=== PATIENT | female | born 1935 | race Caucasian/White ===

== ENCOUNTER 2019-06-30 16:37 | Emergency (ER) | payer BC, OTHER ==
--- NOTE | 2019-06-30 16:43 | PDOC ---
Rapid Medical Evaluation Time Seen by Provider: 06/30/19 16:43 Medical Evaluation: 06/30/19 16:43 I performed a brief in-person evaluation of this patient. 84-year-old female with history of CHF, HTN, mitral valve disease, breast ca s/ p mastectomy and LND presenting with worsening right arm pain today. No weakness or numbness. Alert, oriented, no distress. Unable to elevate/abduct ROM 2/2 shoulder pain. 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 I have ordered the following: EKG R shoulder xray Patient will proceed to the main ED for further evaluation. Discharge Disposition - Diagnosis Shoulder pain - Referrals - Patient Instructions - Post Discharge Activity
[2019-06-30 16:47] VITALS: BMI 31.2
[2019-06-30] MEDS ORDERED: ACETAMINOPHEN 500 MG TABLET (FP) PO ONE (17:44)
--- NOTE | 2019-06-30 17:53 | PDOC ---
History of Present Illness - General Chief Complaint: Pain, Acute Stated Complaint: RT ARM PAIN Time Seen by Provider: 06/30/19 16:43 History Source: Patient Exam Limitations: No Limitations - History of Present Illness Initial Comments: 06/30/19 17:45 84 yo F PMH CHF, HTN, mitral valve disease, breast CA s/p R mastectomy and lymph node dissection, presenting with R shoulder pain. States that it began to hurt her after lunch, no obvious inciting factor, no apparent trauma. Unable to fully abduct or elevate 2/2 pain. Has no other complaints. Has not had recent steroid use or abx use. Patient is on coumadin because of "heart failure", unclear real reason. However, this is checked regularly. Past History - Past Medical History Allergies/Adverse Reactions: Allergies Allergy/AdvReac Type Severity Reaction Status Date / Time No Known Allergies Allergy Verified 06/30/19 16:47 Home Medications: Ambulatory Orders Atorvastatin Ca [Lipitor] 10 mg PO HS 06/30/19 Carvedilol Phosphate [Coreg Cr -] 80 mg PO DAILY 06/30/19 Furosemide [Lasix] 20 mg PO DAILY 06/30/19 Lansoprazole [Prevacid -] 30 mg PO DAILY 06/30/19 Spironolactone 25 mg PO DAILY 06/30/19 Warfarin Sodium [Coumadin] 5 mg PO HS 06/30/19 Cardiac Disorders: Yes (CHF) COPD: No Disorders: No Hypercholesterolemia: Yes Kidney Stones: No - Surgical History Gastric Stapling: No Neurologic Surgery: No - Immunization History Immunization Up to Date: No - Psycho Social/Smoking Cessation Hx Smoking History: Never smoked Have you smoked in the past 12 months: No Information on smoking cessation initiated: No Hx Alcohol Use: No Drug/Substance Use Hx: No Review of Systems - Review of Systems Able to Perform ROS?: Yes Is the patient limited Estonian proficient: No Constitutional: No: Chills, Fever HEENTM: No: Recent change in vision, Hearing Loss, Difficulty Swallowing Respiratory: No: Cough, Shortness of Breath Cardiac (ROS): No: Chest Pain, Irregular Heart Rate, Lightheadedness, Palpitations ABD/GI: No: Constipated, Diarrhea, Nausea, Vomiting : No: Burning, Dysuria, Discharge, Frequency, Flank Pain, Hematuria Musculoskeletal: No: Back Pain, Joint Pain, Muscle Pain Neurological: No: Headache, Numbness, Tingling *Physical Exam - Vital Signs Last Vital Signs Temp Pulse Resp BP Pulse Ox 98.0 F 77 16 105/62 98 06/30/19 16:44 06/30/19 16:44 06/30/19 16:44 06/30/19 16:44 06/30/19 16:44 - Physical Exam Comments: 06/30/19 17:53 Gen: well-developed, NAD Neuro: CNII-XII intact, FTN intact, EOMI, PERRLA, AAOX4, full key filer strength at hand HEENT: atraumatic, normocephalic Neck: trachea midline, supple CV: regular rate, regular rhythm Pulm: CTA b/l, no wheezing Abd: soft, non-distended, non-tender MSK: mild ttp to R shoulder, no apparent fracture, limited ROM 2/2 pain, unable to extend or abduct past around 70% Skin: warm, dry Extr: no edema, no deformities Medical Decision Making - Medical Decision Making 06/30/19 17:56 Concerning for rotator cuff injury. - R shoulder X ray r/o fracture - PO Tylenol for pain control - likely dc for ortho f/u, consider shoulder MRI 06/30/19 18:42 EKG 76 bpm, atrial fibrillation. 06/30/19 19:02 X ray shows osteoarthritic changes, but no acute fracture. Will give IM toradol and Lidoderm patch, attempt to range shoulder more with pain better controlled. Likely dc for outpatient ortho followup, shoulder MRI. Discharge - Discharge Information Problems reviewed: Yes Clinical Impression/Diagnosis: Shoulder pain Condition: Stable Disposition: HOME - Admission No - Follow up/Referral Referrals: Jhonatan Felipe MD [Primary Care Provider] - Jose Guadalupe Hou MD [Staff Physician] - Luis Miguel Oro MD [Staff Physician] - Davey Varela DO [Staff Physician] - - Patient Discharge Instructions Patient Printed Discharge Instructions: Shoulder Tendinopathy, DI for Rotator Cuff Injury, DI for Shoulder Pain Additional Instructions: You were seen with right shoulder pain. Your X ray did not show any acute fractures, however, there did appear to be osteoarthritis. Please take acetaminophen or naproxen as needed for pain. We listed several options for orthopedic surgery consult, please pick whomever you would feel comfortable with and can see you as soon as possible. Follow up with your primary care doctor. Return to the ED if you develop numbness or weakness. - Post Discharge Activity
[2019-06-30] MEDS ORDERED: ACETAMINOPHEN 325 MG TABLET (FP) ONE ×2 (17:59→18:01)
[2019-06-30] MEDS ORDERED: KETOROLAC TROMETHAMINE 30 MG/1 ML VIAL IM ONE (18:55)
[2019-06-30] MEDS ORDERED: LIDOCAINE 5% TOPICAL PATCH TP ONE (19:02)
[2019-06-30] MEDS ORDERED: LIDOCAINE 5% TOPICAL PATCH ONE (19:05)
[2019-06-30] MEDS ORDERED: KETOROLAC TROMETHAMINE 30 MG/1 ML VIAL ONE (19:05)
[2019-06-30 20:08] VITALS: BP 94/52; PULSE 88; TEMP 97.5
--- NOTE | 2019-06-30 20:16 | PDOC ---
Documentation entered by Valerie Kennedy SCRIBE, acting as scribe for Annette Barrera MD. Annette Barrera MD: This documentation has been prepared by the Marcia gomez Adrianna, SCRIBE, under my direction and personally reviewed by me in its entirety. I confirm that the documentation accurately reflects all work, treatment, procedures, and medical decision making performed by me. Attending Attestation - Resident Resident Name: Cierra Borja - ED Attending Attestation I have performed the following: I have examined & evaluated the patient, The case was reviewed & discussed with the resident, I agree w/resident's findings & plan, Exceptions are as noted - HPI HPI: The patient is an 84 year old female, with a significant PMH of CHF, HTN, mitral valve disease, breast ca (s/p right mastectomy and lymph node resection) , and LND, who presents to the ED for evaluation of right shoulder pain since earlier today. Patient cannot move her arm secondary to pain, but denies any trauma to the shoulder. Allergies: NKA, NKDA Surgical History: Social History: Denies EtOH, tobacco, or illicit drug use PCP: Dr. Naranjo - Physicial Exam PE: 06/30/19 19:27 84 yo female dev rt shoulder pain today without any trauma head ncat neck no midline cervical vertebral tenderness neck jvd,supple lungs cta wheezing abd soft extremities the right shoulder is tender to touch, no deformity ,sensation intact, no swelling . Hand and wrist are painfree - Medical Decision Making 06/30/19 20:16 no acute fracture or dislocation seen pt referred to ortho for further eval,MRI and treatment
[2019-06-30] MEDS ORDERED: LIDOCAINE PATCH REMOVAL MC SCH (22:00)
--- NOTE | 2019-07-01 12:12 | EKG ---
Test Reason : Blood Pressure : / mmHG Vent. Rate : 076 BPM Atrial Rate : 357 BPM P-R Int : 000 ms QRS Dur : 092 ms QT Int : 400 ms P-R-T Axes : 000 037 028 degrees QTc Int : 450 ms ATRIAL FIBRILLATION WITH A COMPETING JUNCTIONAL PACEMAKER LOW VOLTAGE QRS NONSPECIFIC T WAVE ABNORMALITY ABNORMAL ECG WHEN COMPARED WITH ECG OF 31-JAN-2010 10:20, NO SIGNIFICANT CHANGE WAS FOUND Confirmed by ANURADHA SHELDON, AUGUSTIN ([id number]) on 07/01/2019 12:12:45 PM Referred By: Confirmed By:AUGUSTIN LING MD
== END 2019-06-30 20:20 | disposition home or self-care (01) ==
LOC: JER 16:37
PROC: 3E0233Z Introduction of Anti-inflammatory into Muscle, Percutaneous Approach (ICD-10-PCS; principal; 2019-06-30)
DX: M19.011 Primary osteoarthritis, right shoulder (principal); I11.0 Hypertensive heart disease with heart failure; I50.9 Heart failure, unspecified; I48.91 Unspecified atrial fibrillation; Z79.01 Long term (current) use of anticoagulants; I05.9 Rheumatic mitral valve disease, unspecified; E78.00 Pure hypercholesterolemia, unspecified; Z85.3 Personal history of malignant neoplasm of breast; Z90.11 Acquired absence of right breast and nipple
CPT/HCPCS: 73030-TC-RT-FY; 93005; 93010; 96372; 99281-25

== ENCOUNTER 2021-05-22 17:49 | Observation (INO) | payer OTHER, BC ==
[2021-05-22] MEDS ORDERED: MECLIZINE HCL 25 MG TABLET (FP) PO ONE (19:51)
[2021-05-22] MEDS ORDERED: MECLIZINE HCL 25 MG TABLET (FP) ONE (19:57)
[2021-05-22 20:03] LABS: BASO % 0.4 % (0-2.0); EOS % 0.4 % (0-4.5); HEMOGLOBIN 10.6 GM/dL (10.7-15.3); LYMPH % 30.6 % (8-40); MCH 33.2 pg (25.7-33.7); MCHC 34.1 g/dl (32.0-36.0); MEAN CELL VOLUME 97.2 fl (80-96); MEAN PLT VOLUME 8.2 fl (7.5-11.1); MONO % 5.8 % (3.8-10.2); NEUT % 62.8 % (42.8-82.8); PLATELET COUNT 185 10^3/uL (134-434); RBC 3.18 M/mm3 (3.60-5.2); RDW 13.9 % (11.6-15.6); WHITE BLOOD COUNT 5.7 K/mm3 (4.0-10.0)
[2021-05-22 20:18] LABS: CHLORIDE 110 mmol/L (98-107); SODIUM 142 mmol/L (136-145)
[2021-05-22 20:20] LABS: ALBUMIN 3.7 g/dl (3.4-5.0); ANION GAP 6 MMOL/L (8-16); BLOOD UREA NITROGEN 31.4 mg/dL (7-18); CO2 26 mmol/L (21-32)
[2021-05-22 20:21] LABS: GLUCOSE,RANDOM 97 mg/dL (74-106)
[2021-05-22 20:22] LABS: CALCIUM 9.3 mg/dL (8.5-10.1)
[2021-05-22 20:24] LABS: SGOT/AST 10 U/L (15-37); SGPT/ALT 18 U/L (13-61)
[2021-05-22 20:25] LABS: BILIRUBIN,TOTAL 0.6 mg/dL (0.2-1); TOT PROT 6.3 g/dl (6.4-8.2)
[2021-05-22 20:26] LABS: ALK PHOS 29 U/L (45-117)
[2021-05-22 20:29] LABS: N-TERMINAL BNP 1206.6 pg/ml (5-450)
[2021-05-22 22:14] LABS: EPI CELLS 17 /uL (0-25.1); HYALINE CASTS 1 /uL (0-3.1); URINE APPEARANCE CLEAR; URINE BACTERIA 67 /uL (0-1359); URINE BILIRUBIN NEGATIVE (NEGATIVE); URINE COLOR YELLOW; URINE GLUCOSE (UA) NEGATIVE (NEGATIVE); URINE KETONE NEGATIVE (NEGATIVE); URINE LEUK ESTERASE 1+ (NEGATIVE); URINE NITRITE NEGATIVE (NEGATIVE); URINE PROTEIN NEGATIVE (NEGATIVE); URINE RBC 14 /uL (0-23.9); URINE WBC 22 /uL (0-25.8)
[2021-05-23] MEDS ORDERED: cefTRIAXone SODIUM 1 GM VIAL IVPB ONE (03:00)
[2021-05-23] MEDS ORDERED: CEFTRIAXONE 1 GM/50 ML BAG ONE (03:01)
[2021-05-23 07:00] LABS: BASO % 0.3 % (0-2.0); EOS % 0.5 % (0-4.5); HEMATOCRIT 30.5 % (32.4-45.2); HEMOGLOBIN 10.4 GM/dL (10.7-15.3); LYMPH % 36.8 % (8-40); MCH 33.2 pg (25.7-33.7); MCHC 34.1 g/dl (32.0-36.0); MEAN CELL VOLUME 97.1 fl (80-96); MEAN PLT VOLUME 7.8 fl (7.5-11.1); MONO % 7.3 % (3.8-10.2); NEUT % 55.1 % (42.8-82.8); PLATELET COUNT 181 10^3/uL (134-434); RBC 3.14 M/mm3 (3.60-5.2); RDW 14.2 % (11.6-15.6); WHITE BLOOD COUNT 4.4 K/mm3 (4.0-10.0)
[2021-05-23 07:19] LABS: ALBUMIN 3.5 g/dl (3.4-5.0); CALCIUM 9.2 mg/dL (8.5-10.1)
[2021-05-23 07:24] LABS: BILIRUBIN,TOTAL 0.7 mg/dL (0.2-1); CREATININE 0.9 mg/dL (0.55-1.3); PHOSPHOROUS 2.9 mg/dL (2.5-4.9); TOT PROT 6.1 g/dl (6.4-8.2)
[2021-05-23] MEDS ORDERED: PANTOPRAZOLE 40 MG TABLET ONE (11:02)
[2021-05-23] MEDS ORDERED: APIXABAN 5 MG TABLET ONE (11:03)
[2021-05-23] MEDS: CARVEDILOL PHOSPHATE CR 40 MG CAPSULE (FP) PO SCH (11:04)
[2021-05-23] MEDS: PANTOPRAZOLE 40 MG TABLET PO SCH (11:04)
[2021-05-23] MEDS: APIXABAN 5 MG TABLET PO SCH ×2 (11:04→21:15)
[2021-05-23] MEDS: SACUBITRIL/VALSARTAN 24 MG-26 MG TABLET PO SCH ×2 (11:04→21:48)
[2021-05-23] MEDS ORDERED: FUROSEMIDE 40 MG TABLET (FP) ONE (15:45)
[2021-05-23] MEDS ORDERED: SPIRONOLACTONE 25 MG TABLET ONE (15:46)
[2021-05-23] MEDS ORDERED: MECLIZINE HCL 25 MG TABLET (FP) ONE (15:51)
[2021-05-23] MEDS: SPIRONOLACTONE 25 MG TABLET PO SCH (15:52)
[2021-05-23] MEDS: MECLIZINE HCL 25 MG TABLET (FP) PO PRN (15:52)
[2021-05-23] MEDS: FUROSEMIDE 20 MG TABLET (FP) PO SCH (15:54)
[2021-05-23] MEDS: ATORVASTATIN CA 10 MG TABLET (FP) PO SCH (21:15)
[2021-05-24 08:37] LABS: BASO % 0.3 % (0-2.0); EOS % 1.5 % (0-4.5); HEMATOCRIT 30.1 % (32.4-45.2); HEMOGLOBIN 10.7 GM/dL (10.7-15.3); MCH 34.8 pg (25.7-33.7); MCHC 35.6 g/dl (32.0-36.0); MEAN CELL VOLUME 97.7 fl (80-96); MEAN PLT VOLUME 8.5 fl (7.5-11.1); MONO % 9.9 % (3.8-10.2); NEUT % 67.3 % (42.8-82.8); PLATELET COUNT 157 10^3/uL (134-434); RBC 3.08 M/mm3 (3.60-5.2); WHITE BLOOD COUNT 3.5 K/mm3 (4.0-10.0)
[2021-05-24] MEDS ORDERED: PT OWN MED DRAWER 7, Y5N ONE ×2 (09:05→18:50)
[2021-05-24 09:07] LABS: BLOOD UREA NITROGEN 27.6 mg/dL (7-18); MAGNESIUM 1.9 mg/dL (1.8-2.4)
[2021-05-24 09:10] LABS: CREATININE 0.9 mg/dL (0.55-1.3); PHOSPHOROUS 3.1 mg/dL (2.5-4.9)
[2021-05-24] MEDS: FUROSEMIDE 20 MG TABLET (FP) PO SCH (09:46)
[2021-05-24] MEDS: SPIRONOLACTONE 25 MG TABLET PO SCH (09:46)
[2021-05-24] MEDS: PANTOPRAZOLE 40 MG TABLET PO SCH (09:46)
[2021-05-24] MEDS: APIXABAN 5 MG TABLET PO SCH ×2 (09:46→21:11)
[2021-05-24] MEDS: CARVEDILOL PHOSPHATE CR 40 MG CAPSULE (FP) PO SCH (09:47)
[2021-05-24] MEDS: SACUBITRIL/VALSARTAN 24 MG-26 MG TABLET PO SCH ×2 (09:47→21:11)
[2021-05-24] MEDS: ATORVASTATIN CA 10 MG TABLET (FP) PO SCH (21:11)
[2021-05-24] MEDS: MECLIZINE HCL 25 MG TABLET (FP) PO PRN (21:13)
[2021-05-25 07:30] LABS: HEMATOCRIT 30.7 % (32.4-45.2); HEMOGLOBIN 10.7 GM/dL (10.7-15.3); MCH 33.3 pg (25.7-33.7); MCHC 34.7 g/dl (32.0-36.0); PLATELET COUNT 169 10^3/uL (134-434); WHITE BLOOD COUNT 4.3 K/mm3 (4.0-10.0)
[2021-05-25 07:48] LABS: CALCIUM 8.9 mg/dL (8.5-10.1)
[2021-05-25 07:49] LABS: BLOOD UREA NITROGEN 29.2 mg/dL (7-18)
[2021-05-25] MEDS ORDERED: PT OWN MED DRAWER 7, Y5N ONE ×2 (09:00→20:59)
[2021-05-25] MEDS: PANTOPRAZOLE 40 MG TABLET PO SCH (09:18)
[2021-05-25] MEDS: APIXABAN 5 MG TABLET PO SCH ×2 (09:18→21:26)
[2021-05-25] MEDS: FUROSEMIDE 20 MG TABLET (FP) PO SCH (09:18)
[2021-05-25] MEDS: SPIRONOLACTONE 25 MG TABLET PO SCH (09:18)
[2021-05-25] MEDS: CARVEDILOL PHOSPHATE CR 40 MG CAPSULE (FP) PO SCH (11:40)
[2021-05-25] MEDS: SACUBITRIL/VALSARTAN 24 MG-26 MG TABLET PO SCH ×2 (11:40→21:27)
[2021-05-25] MEDS: ATORVASTATIN CA 10 MG TABLET (FP) PO SCH (21:26)
[2021-05-25] MEDS: MECLIZINE HCL 25 MG TABLET (FP) PO PRN (21:34)
[2021-05-25 22:35] VITALS: BMI 31.6
[2021-05-26 07:29] LABS: HEMATOCRIT 31.1 % (32.4-45.2); HEMOGLOBIN 10.8 GM/dL (10.7-15.3); MCHC 34.8 g/dl (32.0-36.0); MEAN CELL VOLUME 97.8 fl (80-96); MEAN PLT VOLUME 8.4 fl (7.5-11.1); PLATELET COUNT 170 10^3/uL (134-434); RBC 3.18 M/mm3 (3.60-5.2); RDW 13.8 % (11.6-15.6); WHITE BLOOD COUNT 4.4 K/mm3 (4.0-10.0)
[2021-05-26 07:48] LABS: BLOOD UREA NITROGEN 34.5 mg/dL (7-18)
[2021-05-26 07:52] LABS: CREATININE 1.1 mg/dL (0.55-1.3)
[2021-05-26] MEDS: APIXABAN 5 MG TABLET PO SCH (09:42)
[2021-05-26] MEDS: PANTOPRAZOLE 40 MG TABLET PO SCH (09:42)
[2021-05-26] MEDS: SPIRONOLACTONE 25 MG TABLET PO SCH (09:42)
[2021-05-26] MEDS: FUROSEMIDE 20 MG TABLET (FP) PO SCH (09:42)
[2021-05-26] MEDS: SACUBITRIL/VALSARTAN 24 MG-26 MG TABLET PO SCH (09:43)
[2021-05-26] MEDS: CARVEDILOL PHOSPHATE CR 40 MG CAPSULE (FP) PO SCH (09:43)
[2021-05-26] MEDS ORDERED: MULTIVITAMINS THER W-MINERALS COMBO TABLET (FP) PO SCH ×2 (10:00)
[2021-05-26 14:53] VITALS: BP 93/37; PULSE 65; TEMP 98.1
== END 2021-05-26 19:05 | disposition home or self-care (01) ==
LOC: JER 17:49 → UNDOADMOB 22:24 → JERBED 22:24 → INTOOBSV 22:24 → J4W 05-23 18:53 → JERBED 05-23 18:53 → J4W 05-24 09:45 → JERBED 05-24 09:45
PROVIDERS: ADMIT Internal Medicine; ATTEND Internal Medicine
DX: I11.0 Hypertensive heart disease with heart failure (principal); I50.30 Unspecified diastolic (congestive) heart failure; R42 Dizziness and giddiness; I48.91 Unspecified atrial fibrillation; Z85.3 Personal history of malignant neoplasm of breast; I42.0 Dilated cardiomyopathy; E78.5 Hyperlipidemia, unspecified; E66.9 Obesity, unspecified; Z68.31 Body mass index [BMI] 31.0-31.9, adult; Z91.011 Allergy to milk products; Z79.01 Long term (current) use of anticoagulants
CPT/HCPCS: 36415; 70450-TC; 70551-TC; 71045-TC-FY; 71250-TC; 80048; 80053; 80061; 81003; 82550; 82728; 83036; 83540; 83550; 83735; 83880; 84100; 84443; 84466; 84484; 85025; 85027; 85045; 87086; 93005; 93010; 93306-TC; 93880-TC; 96374; 97116-GP; 97161-GP; 99291; C9803; G0378; U0003; U0005

== ENCOUNTER 2022-12-19 08:15 | Inpatient (IN) | payer OTHER, BC ==
[2022-12-19 09:37] LABS: INR 1.69 (0.83-1.09); PROTHROMBIN TIME (PATIENT) 19.5 SEC (9.7-13.0)
[2022-12-19 09:41] LABS: BASO % 0.4 % (0-2.0); EOS % 0.1 % (0-4.5); HEMATOCRIT 32.6 % (32.4-45.2); HEMOGLOBIN 11.1 GM/dL (10.7-15.3); LYMPH % 14.9 % (8-40); MCH 32.6 pg (25.7-33.7); MCHC 34.1 g/dl (32.0-36.0); MEAN CELL VOLUME 95.8 fl (80-96); MEAN PLT VOLUME 8.5 fl (7.5-11.1); MONO % 6.9 % (3.8-10.2); NEUT % 77.7 % (42.8-82.8); PLATELET COUNT 161 10^3/uL (134-434); RBC 3.41 M/mm3 (3.60-5.2); RDW 14.7 % (11.6-15.6); WHITE BLOOD COUNT 5.4 K/mm3 (4.0-10.0)
[2022-12-19 09:56] LABS: CALCIUM 9.9 mg/dL (8.5-10.1)
[2022-12-19 09:57] LABS: ALBUMIN 3.7 g/dl (3.4-5.0); BLOOD UREA NITROGEN 41.7 mg/dL (7-18)
[2022-12-19 10:00] LABS: CREATININE 1.2 mg/dL (0.55-1.3)
[2022-12-19 10:01] LABS: TOT PROT 6.7 g/dl (6.4-8.2)
[2022-12-19] MEDS ORDERED: MECLIZINE HCL 25 MG TABLET (FP) PO PRN (12:24)
[2022-12-19 15:56] VITALS: BMI 33.7
[2022-12-19 19:52] LABS: HEMOGLOBIN 9.8 GM/dL (10.7-15.3); MCH 32.4 pg (25.7-33.7); MCHC 33.7 g/dl (32.0-36.0); MEAN PLT VOLUME 8.4 fl (7.5-11.1); PLATELET COUNT 121 10^3/uL (134-434); RBC 3.02 M/mm3 (3.60-5.2); RDW 14.9 % (11.6-15.6); WHITE BLOOD COUNT 3.7 K/mm3 (4.0-10.0)
[2022-12-19 20:07] LABS: INR 1.61 (0.83-1.09); PROTHROMBIN TIME (PATIENT) 18.6 SEC (9.7-13.0)
[2022-12-19 20:10] LABS: ACTIVATED PTT 35.9 SECONDS (25.2-36.5)
[2022-12-19] MEDS: ATORVASTATIN CA 10 MG TABLET (FP) PO SCH (21:35)
[2022-12-19] MEDS: POLYETHYLENE GLYCOL (HEALTHYLAX) 3350 17 GM PACKET PO SCH (21:36)
[2022-12-19] MEDS: SACUBITRIL/VALSARTAN 24 MG-26 MG TABLET PO SCH (22:33)
[2022-12-19 23:04] LABS: EPI CELLS 31 /uL (0-25.1); HYALINE CASTS 15 /uL (0-3.1); PH,URINE 5.5 (5.0-8.0); URINE APPEARANCE TURBID; URINE BILIRUBIN 1+ (NEGATIVE); URINE COLOR RED; URINE GLUCOSE (UA) NEGATIVE (NEGATIVE); URINE KETONE NEGATIVE (NEGATIVE); URINE LEUK ESTERASE 2+ (NEGATIVE); URINE NITRITE POSITIVE (NEGATIVE); URINE PROTEIN 3+ (NEGATIVE); URINE RBC 39005 /uL (0-23.9); URINE UROBILINOGEN 0.2 mg/dL (0.2-1.0); URINE WBC 38 /uL (0-25.8)
[2022-12-20 08:51] LABS: BASO % 0.3 % (0-2.0); EOS % 0.2 % (0-4.5); HEMATOCRIT 29.5 % (32.4-45.2); HEMOGLOBIN 10.3 GM/dL (10.7-15.3); LYMPH % 27.5 % (8-40); MCH 33.4 pg (25.7-33.7); MCHC 34.9 g/dl (32.0-36.0); MEAN CELL VOLUME 95.8 fl (80-96); MEAN PLT VOLUME 8.7 fl (7.5-11.1); MONO % 17.2 % (3.8-10.2); NEUT % 54.8 % (42.8-82.8); PLATELET COUNT 118 10^3/uL (134-434); RBC 3.08 M/mm3 (3.60-5.2); RDW 14.5 % (11.6-15.6); WHITE BLOOD COUNT 2.1 K/mm3 (4.0-10.0)
[2022-12-20 08:52] LABS: INR 1.48 (0.83-1.09); PROTHROMBIN TIME (PATIENT) 17.1 SEC (9.7-13.0)
[2022-12-20 09:20] LABS: ALBUMIN 3.2 g/dl (3.4-5.0)
[2022-12-20 09:22] LABS: BILIRUBIN,TOTAL 0.8 mg/dL (0.2-1); TOT PROT 5.8 g/dl (6.4-8.2)
[2022-12-20 09:24] LABS: CALCIUM 8.5 mg/dL (8.5-10.1); PHOSPHOROUS 2.7 mg/dL (2.5-4.9)
[2022-12-20] MEDS ORDERED: PANTOPRAZOLE 40 MG TABLET PO SCH ×2 (10:00)
[2022-12-20] MEDS: FUROSEMIDE 20 MG TABLET (FP) PO SCH (10:55)
[2022-12-20] MEDS: POLYETHYLENE GLYCOL (HEALTHYLAX) 3350 17 GM PACKET PO SCH ×4 (10:55→22:23)
[2022-12-20] MEDS: SPIRONOLACTONE 25 MG TABLET PO SCH (10:55)
[2022-12-20] MEDS: CARVEDILOL PHOSPHATE CR 40 MG CAPSULE (FP) PO SCH (10:55)
[2022-12-20] MEDS: SACUBITRIL/VALSARTAN 24 MG-26 MG TABLET PO SCH ×2 (10:56→22:12)
[2022-12-20 13:45] LABS: RETICULOCYTES 1.11 % (0.5-1.5)
[2022-12-20 14:10] LABS: ANISOCYTOSIS 0; HELMET CELLS 0; HOWELL-JOLLY BODIES 0; MACROCYTOSIS 0; OVALOCYTE 0; ROULEAU 0; SICKELED CELLS 0; TARGET CELLS 0; TEAR DROP CELLS 0; TOXIC GRANULATION 0
[2022-12-20 16:44] LABS: BASO % 0.3 % (0-2.0); EOS % 0.3 % (0-4.5); LYMPH % 36.5 % (8-40); MCHC 34.5 g/dl (32.0-36.0); MEAN CELL VOLUME 95.4 fl (80-96); MEAN PLT VOLUME 8.9 fl (7.5-11.1); MONO % 17.3 % (3.8-10.2); NEUT % 45.6 % (42.8-82.8); PLATELET COUNT 119 10^3/uL (134-434); RBC 3.04 M/mm3 (3.60-5.2); RDW 14.6 % (11.6-15.6)
[2022-12-20] MEDS: ATORVASTATIN CA 10 MG TABLET (FP) PO SCH (22:12)
[2022-12-21 08:53] LABS: INR 1.29 (0.83-1.09); PROTHROMBIN TIME (PATIENT) 14.9 SEC (9.7-13.0)
[2022-12-21 09:12] LABS: BASO % 0.2 % (0-2.0); EOS % 0.6 % (0-4.5); HEMATOCRIT 28.3 % (32.4-45.2); HEMOGLOBIN 9.8 GM/dL (10.7-15.3); LYMPH % 35.4 % (8-40); MCH 32.9 pg (25.7-33.7); MCHC 34.5 g/dl (32.0-36.0); MEAN CELL VOLUME 95.4 fl (80-96); MEAN PLT VOLUME 8.5 fl (7.5-11.1); MONO % 15.2 % (3.8-10.2); NEUT % 48.6 % (42.8-82.8); PLATELET COUNT 115 10^3/uL (134-434); RBC 2.97 M/mm3 (3.60-5.2); RDW 14.7 % (11.6-15.6); WHITE BLOOD COUNT 2.7 K/mm3 (4.0-10.0)
[2022-12-21] MEDS: FUROSEMIDE 20 MG TABLET (FP) PO SCH (10:41)
[2022-12-21] MEDS: CARVEDILOL PHOSPHATE CR 40 MG CAPSULE (FP) PO SCH (10:41)
[2022-12-21] MEDS: SPIRONOLACTONE 25 MG TABLET PO SCH (10:41)
[2022-12-21] MEDS: PANTOPRAZOLE 40 MG TABLET PO SCH (10:41)
[2022-12-21 10:42] LABS: CALCIUM 8.9 mg/dL (8.5-10.1)
[2022-12-21] MEDS: SACUBITRIL/VALSARTAN 24 MG-26 MG TABLET PO SCH ×2 (10:42→21:17)
[2022-12-21 10:43] LABS: ALBUMIN 3.1 g/dl (3.4-5.0); BLOOD UREA NITROGEN 31.1 mg/dL (7-18); MAGNESIUM 2.2 mg/dL (1.8-2.4)
[2022-12-21] MEDS: POLYETHYLENE GLYCOL (HEALTHYLAX) 3350 17 GM PACKET PO SCH ×2 (10:45→21:17)
[2022-12-21 10:46] LABS: PHOSPHOROUS 2.8 mg/dL (2.5-4.9)
[2022-12-21 10:48] LABS: BILIRUBIN,TOTAL 0.6 mg/dL (0.2-1); TOT PROT 5.6 g/dl (6.4-8.2)
[2022-12-21] MEDS: FERROUS SO4 325 MG TABLET (FP) PO SCH (13:28)
[2022-12-21] MEDS: ASCORBIC ACID 500 MG TABLET (FP) PO SCH ×2 (13:28→21:17)
[2022-12-21 16:43] LABS: EPI CELLS >36 /uL (0-25.1); HYALINE CASTS 2 /uL (0-3.1); URINE APPEARANCE CLEAR; URINE BACTERIA 114 /uL (0-1359); URINE BILIRUBIN NEGATIVE (NEGATIVE); URINE COLOR YELLOW; URINE GLUCOSE (UA) NEGATIVE (NEGATIVE); URINE KETONE NEGATIVE (NEGATIVE); URINE LEUK ESTERASE 1+ (NEGATIVE); URINE NITRITE NEGATIVE (NEGATIVE); URINE PROTEIN NEGATIVE (NEGATIVE); URINE RBC 21 /uL (0-23.9); URINE WBC 18 /uL (0-25.8)
[2022-12-21] MEDS: ATORVASTATIN CA 10 MG TABLET (FP) PO SCH (21:16)
[2022-12-22 08:27] LABS: BASO % 0.3 % (0-2.0); EOS % 0.6 % (0-4.5); HEMOGLOBIN 9.9 GM/dL (10.7-15.3); LYMPH % 41.5 % (8-40); MCH 32.7 pg (25.7-33.7); MCHC 34.1 g/dl (32.0-36.0); MEAN CELL VOLUME 95.7 fl (80-96); MEAN PLT VOLUME 8.5 fl (7.5-11.1); MONO % 11.6 % (3.8-10.2); PLATELET COUNT 123 10^3/uL (134-434); RBC 3.03 M/mm3 (3.60-5.2); RDW 14.8 % (11.6-15.6); WHITE BLOOD COUNT 3.4 K/mm3 (4.0-10.0)
[2022-12-22] MEDS: POLYETHYLENE GLYCOL (HEALTHYLAX) 3350 17 GM PACKET PO SCH ×2 (09:38→22:03)
[2022-12-22] MEDS: FUROSEMIDE 20 MG TABLET (FP) PO SCH (09:39)
[2022-12-22] MEDS: FERROUS SO4 325 MG TABLET (FP) PO SCH (09:39)
[2022-12-22] MEDS: SPIRONOLACTONE 25 MG TABLET PO SCH (09:39)
[2022-12-22] MEDS: SACUBITRIL/VALSARTAN 24 MG-26 MG TABLET PO SCH ×2 (09:39→22:03)
[2022-12-22] MEDS: CARVEDILOL PHOSPHATE CR 40 MG CAPSULE (FP) PO SCH (09:39)
[2022-12-22] MEDS: PANTOPRAZOLE 40 MG TABLET PO SCH (09:39)
[2022-12-22] MEDS: ASCORBIC ACID 500 MG TABLET (FP) PO SCH ×2 (09:45→22:03)
[2022-12-22] MEDS: CEFTRIAXONE 1 GM in DEXTROSE 5%-WATER - 50 ML IVPB SCH (12:57)
[2022-12-22 15:29] LABS: INR 1.17 (0.83-1.09); PROTHROMBIN TIME (PATIENT) 13.5 SEC (9.7-13.0)
[2022-12-22] MEDS: ATORVASTATIN CA 10 MG TABLET (FP) PO SCH (22:03)
[2022-12-23 09:23] LABS: BASO % 0.3 % (0-2.0); EOS % 0.9 % (0-4.5); HEMATOCRIT 30.2 % (32.4-45.2); HEMOGLOBIN 10.3 GM/dL (10.7-15.3); LYMPH % 26.6 % (8-40); MCH 32.7 pg (25.7-33.7); MCHC 34.1 g/dl (32.0-36.0); MEAN CELL VOLUME 95.9 fl (80-96); MEAN PLT VOLUME 8.5 fl (7.5-11.1); MONO % 6.3 % (3.8-10.2); NEUT % 65.9 % (42.8-82.8); PLATELET COUNT 125 10^3/uL (134-434); RBC 3.15 M/mm3 (3.60-5.2); RDW 14.9 % (11.6-15.6); WHITE BLOOD COUNT 3.7 K/mm3 (4.0-10.0)
[2022-12-23] MEDS ORDERED: PEG 3350/NA SULF BICARB CL/KCL 4000 ML SOLN.RECON PO ONE (10:00)
[2022-12-23 10:59] LABS: ALBUMIN 3.2 g/dl (3.4-5.0); BILIRUBIN,TOTAL 0.9 mg/dL (0.2-1); BLOOD UREA NITROGEN 37.2 mg/dL (7-18); CALCIUM 8.9 mg/dL (8.5-10.1); CREATININE 1.3 mg/dL (0.55-1.3); TOT PROT 6.1 g/dl (6.4-8.2)
[2022-12-23] MEDS: SACUBITRIL/VALSARTAN 24 MG-26 MG TABLET PO SCH ×2 (11:00→22:56)
[2022-12-23] MEDS: POLYETHYLENE GLYCOL (HEALTHYLAX) 3350 17 GM PACKET PO SCH ×2 (11:00→22:56)
[2022-12-23] MEDS: SPIRONOLACTONE 25 MG TABLET PO SCH (11:00)
[2022-12-23] MEDS: ASCORBIC ACID 500 MG TABLET (FP) PO SCH ×2 (11:00→22:56)
[2022-12-23] MEDS: CARVEDILOL PHOSPHATE CR 40 MG CAPSULE (FP) PO SCH (11:00)
[2022-12-23] MEDS: CEFTRIAXONE 1 GM in DEXTROSE 5%-WATER - 50 ML IVPB SCH (11:00)
[2022-12-23] MEDS: PANTOPRAZOLE 40 MG TABLET PO SCH (11:00)
[2022-12-23] MEDS: FUROSEMIDE 20 MG TABLET (FP) PO SCH (11:00)
[2022-12-23] MEDS: FERROUS SO4 325 MG TABLET (FP) PO SCH (11:00)
[2022-12-23] MEDS ORDERED: BISACODYL 5 MG TABLET.DR (FP) PO ONE (20:00)
[2022-12-23] MEDS: ATORVASTATIN CA 10 MG TABLET (FP) PO SCH (22:56)
[2022-12-24 07:14] LABS: BASO % 0.3 % (0-2.0); EOS % 1.2 % (0-4.5); HEMATOCRIT 28.3 % (32.4-45.2); HEMOGLOBIN 9.9 GM/dL (10.7-15.3); LYMPH % 31.2 % (8-40); MCH 33.5 pg (25.7-33.7); MCHC 34.9 g/dl (32.0-36.0); MEAN CELL VOLUME 95.9 fl (80-96); MEAN PLT VOLUME 8.7 fl (7.5-11.1); MONO % 8.5 % (3.8-10.2); NEUT % 58.8 % (42.8-82.8); PLATELET COUNT 123 10^3/uL (134-434); RBC 2.95 M/mm3 (3.60-5.2)
[2022-12-24 07:22] LABS: INR 1.15 (0.83-1.09); PROTHROMBIN TIME (PATIENT) 13.3 SEC (9.7-13.0)
[2022-12-24 07:29] LABS: CALCIUM 8.5 mg/dL (8.5-10.1)
[2022-12-24 07:31] LABS: BLOOD UREA NITROGEN 26.6 mg/dL (7-18)
[2022-12-24 07:33] LABS: CREATININE 0.8 mg/dL (0.55-1.3)
[2022-12-24] MEDS: POLYETHYLENE GLYCOL (HEALTHYLAX) 3350 17 GM PACKET PO SCH ×2 (09:15→22:55)
[2022-12-24] MEDS: PANTOPRAZOLE 40 MG TABLET PO SCH (09:16)
[2022-12-24] MEDS: ASCORBIC ACID 500 MG TABLET (FP) PO SCH ×2 (09:16→22:55)
[2022-12-24] MEDS: SACUBITRIL/VALSARTAN 24 MG-26 MG TABLET PO SCH ×2 (09:16→22:55)
[2022-12-24] MEDS: CARVEDILOL PHOSPHATE CR 40 MG CAPSULE (FP) PO SCH (09:16)
[2022-12-24] MEDS: FERROUS SO4 325 MG TABLET (FP) PO SCH (09:16)
[2022-12-24] MEDS: CEFTRIAXONE 1 GM in DEXTROSE 5%-WATER - 50 ML IVPB SCH (09:33)
[2022-12-24] MEDS: ATORVASTATIN CA 10 MG TABLET (FP) PO SCH (22:55)
[2022-12-25 07:42] VITALS: RESP 18
[2022-12-25 08:36] LABS: BASO % 0.4 % (0-2.0); EOS % 1.4 % (0-4.5); HEMATOCRIT 28.4 % (32.4-45.2); HEMOGLOBIN 9.6 GM/dL (10.7-15.3); LYMPH % 28.2 % (8-40); MCH 32.3 pg (25.7-33.7); MCHC 33.7 g/dl (32.0-36.0); MEAN PLT VOLUME 8.4 fl (7.5-11.1); MONO % 10.6 % (3.8-10.2); NEUT % 59.4 % (42.8-82.8); PLATELET COUNT 120 10^3/uL (134-434); RBC 2.96 M/mm3 (3.60-5.2); RDW 14.4 % (11.6-15.6); WHITE BLOOD COUNT 2.6 K/mm3 (4.0-10.0)
[2022-12-25 09:06] LABS: CALCIUM 8.9 mg/dL (8.5-10.1)
[2022-12-25 09:07] LABS: BLOOD UREA NITROGEN 28.5 mg/dL (7-18); MAGNESIUM 2.2 mg/dL (1.8-2.4)
[2022-12-25 09:10] LABS: PHOSPHOROUS 2.7 mg/dL (2.5-4.9)
[2022-12-25 09:12] LABS: TOT PROT 5.7 g/dl (6.4-8.2)
[2022-12-25 09:17] LABS: BILIRUBIN,TOTAL 0.4 mg/dL (0.2-1)
[2022-12-25] MEDS: PANTOPRAZOLE 40 MG TABLET PO SCH (10:55)
[2022-12-25] MEDS: ASCORBIC ACID 500 MG TABLET (FP) PO SCH (10:55)
[2022-12-25] MEDS: FERROUS SO4 325 MG TABLET (FP) PO SCH (10:55)
[2022-12-25] MEDS: POLYETHYLENE GLYCOL (HEALTHYLAX) 3350 17 GM PACKET PO SCH (10:55)
[2022-12-25] MEDS: CEFTRIAXONE 1 GM in DEXTROSE 5%-WATER - 50 ML IVPB SCH (10:55)
[2022-12-25] MEDS: SACUBITRIL/VALSARTAN 24 MG-26 MG TABLET PO SCH (10:56)
[2022-12-25] MEDS: CARVEDILOL PHOSPHATE CR 40 MG CAPSULE (FP) PO SCH (10:56)
[2022-12-25 19:43] VITALS: BP 119/68; PULSE 68; TEMP 97.8
== END 2022-12-25 19:35 | disposition home or self-care (01) | DRG 377 ==
LOC: JER 08:15 → JERBED 12:14 → J7W 14:48 → OBSVTOIN 12-21 16:07 → J7W 12-24 17:40
PROVIDERS: ADMIT Internal Medicine; ATTEND Internal Medicine
PROC: 0DJD8ZZ Inspection of Lower Intestinal Tract, Via Natural or Artificial Opening Endoscopic (ICD-10-PCS; principal; 2022-12-24 12:00)
DX: K62.5 Hemorrhage of anus and rectum (principal); I50.23 Acute on chronic systolic (congestive) heart failure; J18.9 Pneumonia, unspecified organism; D61.818 Other pancytopenia; I42.0 Dilated cardiomyopathy; I48.21 Permanent atrial fibrillation; J90 Pleural effusion, not elsewhere classified; J98.11 Atelectasis; N17.9 Acute kidney failure, unspecified; I13.0 Hypertensive heart and chronic kidney disease with heart failure and stage 1 through stage 4 chronic kidney disease, or unspecified chronic kidney disease; I31.39 Other pericardial effusion (noninflammatory); E78.00 Pure hypercholesterolemia, unspecified; I25.10 Atherosclerotic heart disease of native coronary artery without angina pectoris; K57.90 Diverticulosis of intestine, part unspecified, without perforation or abscess without bleeding; K21.9 Gastro-esophageal reflux disease without esophagitis; D69.6 Thrombocytopenia, unspecified; D70.9 Neutropenia, unspecified; I73.9 Peripheral vascular disease, unspecified; I34.0 Nonrheumatic mitral (valve) insufficiency; K76.89 Other specified diseases of liver; R91.1 Solitary pulmonary nodule; D18.09 Hemangioma of other sites; N18.9 Chronic kidney disease, unspecified; K64.8 Other hemorrhoids; K59.00 Constipation, unspecified; D64.9 Anemia, unspecified; N28.1 Cyst of kidney, acquired; R16.0 Hepatomegaly, not elsewhere classified; Z85.3 Personal history of malignant neoplasm of breast
CPT/HCPCS: 36415; 71045-TC-FY; 74176-TC; 74183-TC; 80048; 80053; 81003; 82103; 82272; 82607; 82728; 82747; 82962; 83540; 83550; 83605; 83615; 83735; 84100; 85014; 85025; 85027; 85045; 85610; 85730; 86850; 86900; 86901; 87086; 93005; 93010; 93306-TC; 94010; 97116-GP; 97162-GP; 99285-25; A9579; C9803-CS; G0378; U0003; U0005

== ENCOUNTER 2023-06-30 18:58 | Inpatient (IN) | payer OTHER, BC ==
[2023-06-30 19:35] VITALS: BMI 33.7
[2023-06-30 19:38] LABS: BASO % 0.4 % (0-2.0); EOS % 0.3 % (0-4.5); LYMPH % 31.1 % (8-40); MCH 34.4 pg (25.7-33.7); MCHC 32.8 g/dl (32.0-36.0); MEAN CELL VOLUME 104.9 fl (80-96); MEAN PLT VOLUME 8.7 fl (7.5-11.1); MONO % 7.6 % (3.8-10.2); NEUT % 60.6 % (42.8-82.8); PLATELET COUNT 208 10^3/uL (134-434); RBC 1.58 M/mm3 (3.60-5.2); RDW 20.1 % (11.6-15.6); WHITE BLOOD COUNT 5.4 K/mm3 (4.0-10.0)
[2023-06-30 19:42] LABS: HEMOGLOBIN 5.4 GM/dL (10.7-15.3)
[2023-06-30 19:43] LABS: HEMATOCRIT 16.6 % (32.4-45.2)
[2023-06-30 19:46] LABS: INR 1.83 (0.83-1.09); PROTHROMBIN TIME (PATIENT) 21.1 SEC (9.7-13.0)
[2023-06-30 19:48] LABS: ACTIVATED PTT 31.5 SECONDS (25.2-36.5)
[2023-06-30 19:50] LABS: PH,URINE 5.5 (5.0-8.0); URINE APPEARANCE Clear; URINE BILIRUBIN Negative (NEGATIVE); URINE COLOR Yellow; URINE GLUCOSE (UA) Negative (NEGATIVE); URINE KETONE Negative (NEGATIVE); URINE LEUK ESTERASE 1+ (NEGATIVE); URINE NITRITE Negative (NEGATIVE); URINE PROTEIN Negative (NEGATIVE); URINE UROBILINOGEN 0.2 mg/dL (0.2-1.0)
[2023-06-30 19:51] LABS: POTASSIUM 5.7 mmol/L (3.5-5.1)
[2023-06-30 19:53] LABS: CALCIUM 8.5 mg/dL (8.5-10.1)
[2023-06-30 19:54] LABS: ALBUMIN 3.2 g/dl (3.4-5.0); BLOOD UREA NITROGEN 81.8 mg/dL (7-18)
[2023-06-30 19:57] LABS: CREATININE 1.7 mg/dL (0.55-1.3)
[2023-06-30 19:58] LABS: BILIRUBIN,TOTAL 0.4 mg/dL (0.2-1); TOT PROT 5.5 g/dl (6.4-8.2)
[2023-06-30 20:01] LABS: N-TERMINAL BNP 1260.3 pg/ml (5-450)
[2023-06-30 20:24] LABS: HYALINE CASTS 0.43 /uL (0-3.1); URINE BACTERIA 59.2 /uL (0-1359); URINE CRYSTALS Few /hpf; URINE RBC 9.2 /uL (0-23.9); URINE WBC 25.4 /uL (0-25.8)
[2023-06-30] MEDS ORDERED: PANTOPRAZOLE SODIUM 40 MG VIAL IVPUSH ONE (21:16)
[2023-06-30] MEDS ORDERED: PANTOPRAZOLE SODIUM 40 MG VIAL ONE (21:20)
[2023-06-30 22:28] LABS: RETICULOCYTES 11.43 % (0.5-1.5)
[2023-06-30 22:44] LABS: BILIRUBIN,DIRECT 0.1 mg/dL (0.0-0.2)
[2023-07-01] MEDS ORDERED: CEFTRIAXONE 1 GM/50 ML BAG ONE ×2 (02:37→09:01)
[2023-07-01] MEDS: CEFTRIAXONE 1 GM in DEXTROSE 5%-WATER - 50 ML IVPB SCH ×2 (02:47→10:06)
[2023-07-01 06:41] LABS: BASO % 0.2 % (0-2.0); EOS % 0.3 % (0-4.5); HEMATOCRIT 19.5 % (32.4-45.2); MCH 33.1 pg (25.7-33.7); MCHC 33.6 g/dl (32.0-36.0); MEAN PLT VOLUME 8.1 fl (7.5-11.1); NEUT % 70.5 % (42.8-82.8); PLATELET COUNT 150 10^3/uL (134-434); RBC 1.98 M/mm3 (3.60-5.2); RDW 20.7 % (11.6-15.6); WHITE BLOOD COUNT 4.4 K/mm3 (4.0-10.0)
[2023-07-01 06:54] LABS: MEAN CELL VOLUME 98.4 fl (80-96)
[2023-07-01 06:56] LABS: HEMOGLOBIN 6.6 GM/dL (10.7-15.3); POTASSIUM 5.1 mmol/L (3.5-5.1)
[2023-07-01 06:59] LABS: BLOOD UREA NITROGEN 69.3 mg/dL (7-18); MAGNESIUM 2.2 mg/dL (1.8-2.4)
[2023-07-01 07:01] LABS: ALBUMIN 2.8 g/dl (3.4-5.0)
[2023-07-01 07:02] LABS: CREATININE 1.4 mg/dL (0.55-1.3); PHOSPHOROUS 3.2 mg/dL (2.5-4.9)
[2023-07-01 07:03] LABS: TOT PROT 4.9 g/dl (6.4-8.2)
[2023-07-01 07:04] LABS: BILIRUBIN,TOTAL 0.5 mg/dL (0.2-1)
[2023-07-01 08:47] LABS: ANISOCYTOSIS 2+; MACROCYTOSIS 1+
[2023-07-01] MEDS ORDERED: CEFTRIAXONE 1,000 MG in DEXTROSE 5%-WATER - 50 ML IVPB SCH (10:00)
[2023-07-01] MEDS ORDERED: FUROSEMIDE 20 MG TABLET (FP) PO SCH (10:00)
[2023-07-01] MEDS ORDERED: PANTOPRAZOLE SODIUM 40 MG VIAL IVPUSH SCH ×2 (10:00)
[2023-07-01] MEDS: PANTOPRAZOLE SODIUM 80 MG in SODIUM CHLORIDE 100 ML IVPB SCH ×2 (13:32→23:00)
[2023-07-01 15:46] LABS: BASO % 0.1 % (0-2.0); EOS % 0.4 % (0-4.5); HEMATOCRIT 20.8 % (32.4-45.2); LYMPH % 12.6 % (8-40); MCH 32.9 pg (25.7-33.7); MCHC 33.8 g/dl (32.0-36.0); MEAN CELL VOLUME 97.2 fl (80-96); MEAN PLT VOLUME 7.8 fl (7.5-11.1); MONO % 8.6 % (3.8-10.2); NEUT % 78.3 % (42.8-82.8); PLATELET COUNT 165 10^3/uL (134-434); RBC 2.14 M/mm3 (3.60-5.2); RDW 21.4 % (11.6-15.6); WHITE BLOOD COUNT 4.5 K/mm3 (4.0-10.0)
[2023-07-01] MEDS: ATORVASTATIN CA 10 MG TABLET (FP) PO SCH (21:25)
[2023-07-02 07:28] LABS: BASO % 0.6 % (0-2.0); EOS % 1.1 % (0-4.5); HEMATOCRIT 19.3 % (32.4-45.2); MCH 33.1 pg (25.7-33.7); MEAN CELL VOLUME 100.2 fl (80-96); MEAN PLT VOLUME 8.1 fl (7.5-11.1); MONO % 10.9 % (3.8-10.2); NEUT % 68.4 % (42.8-82.8); PLATELET COUNT 152 10^3/uL (134-434); RBC 1.92 M/mm3 (3.60-5.2); RDW 21.7 % (11.6-15.6); WHITE BLOOD COUNT 2.8 K/mm3 (4.0-10.0)
[2023-07-02 07:36] LABS: HEMOGLOBIN 6.4 GM/dL (10.7-15.3)
[2023-07-02] MEDS: CEFTRIAXONE 1 GM in DEXTROSE 5%-WATER - 50 ML IVPB SCH (09:22)
[2023-07-02] MEDS: PANTOPRAZOLE SODIUM 80 MG in SODIUM CHLORIDE 100 ML IVPB SCH ×2 (09:22→18:22)
[2023-07-02] MEDS: ATORVASTATIN CA 10 MG TABLET (FP) PO SCH (21:29)
[2023-07-02 21:53] LABS: HEMATOCRIT 22.7 % (32.4-45.2); HEMOGLOBIN 7.8 GM/dL (10.7-15.3); MCH 32.4 pg (25.7-33.7); MCHC 34.3 g/dl (32.0-36.0); MEAN CELL VOLUME 94.3 fl (80-96); MEAN PLT VOLUME 7.8 fl (7.5-11.1); PLATELET COUNT 140 10^3/uL (134-434); RBC 2.41 M/mm3 (3.60-5.2); RDW 22.7 % (11.6-15.6); WHITE BLOOD COUNT 3.4 K/mm3 (4.0-10.0)
[2023-07-03] MEDS: PANTOPRAZOLE SODIUM 80 MG in SODIUM CHLORIDE 100 ML IVPB SCH (06:12)
[2023-07-03 07:16] LABS: HEMATOCRIT 22.8 % (32.4-45.2); HEMOGLOBIN 7.7 GM/dL (10.7-15.3); MCH 32.2 pg (25.7-33.7); MCHC 33.9 g/dl (32.0-36.0); MEAN CELL VOLUME 94.9 fl (80-96); MEAN PLT VOLUME 7.9 fl (7.5-11.1); PLATELET COUNT 147 10^3/uL (134-434); RDW 23.2 % (11.6-15.6); WHITE BLOOD COUNT 3.7 K/mm3 (4.0-10.0)
[2023-07-03 07:30] LABS: POTASSIUM 4.4 mmol/L (3.5-5.1)
[2023-07-03 07:34] LABS: CALCIUM 8.3 mg/dL (8.5-10.1)
[2023-07-03 07:35] LABS: ALBUMIN 2.7 g/dl (3.4-5.0); BLOOD UREA NITROGEN 48.3 mg/dL (7-18)
[2023-07-03 07:38] LABS: CREATININE 1.2 mg/dL (0.55-1.3)
[2023-07-03 07:40] LABS: BILIRUBIN,TOTAL 1.1 mg/dL (0.2-1); TOT PROT 4.9 g/dl (6.4-8.2)
[2023-07-03] MEDS ORDERED: FUROSEMIDE 40 MG TABLET (FP) PO SCH (10:00)
[2023-07-03] MEDS ORDERED: CARVEDILOL PHOSPHATE CR 40 MG CAPSULE (FP) PO SCH (10:00)
[2023-07-03] MEDS ORDERED: SIMETHICONE 40 MG/0.6 ML BOTTLE ONE (12:34)
[2023-07-03 18:12] LABS: HEMATOCRIT 24.5 % (32.4-45.2); HEMOGLOBIN 8.3 GM/dL (10.7-15.3); MCH 31.9 pg (25.7-33.7); MCHC 33.7 g/dl (32.0-36.0); MEAN CELL VOLUME 94.5 fl (80-96); PLATELET COUNT 152 10^3/uL (134-434); RDW 23.3 % (11.6-15.6); WHITE BLOOD COUNT 3.6 K/mm3 (4.0-10.0)
[2023-07-03] MEDS: ATORVASTATIN CA 10 MG TABLET (FP) PO SCH (21:41)
[2023-07-04 07:40] LABS: HEMATOCRIT 22.3 % (32.4-45.2); HEMOGLOBIN 7.4 GM/dL (10.7-15.3); MCH 31.9 pg (25.7-33.7); MCHC 33.2 g/dl (32.0-36.0); MEAN CELL VOLUME 96.2 fl (80-96); MEAN PLT VOLUME 8.1 fl (7.5-11.1); PLATELET COUNT 149 10^3/uL (134-434); RBC 2.31 M/mm3 (3.60-5.2); RDW 22.8 % (11.6-15.6); WHITE BLOOD COUNT 4.2 K/mm3 (4.0-10.0)
[2023-07-04 08:21] LABS: POTASSIUM 4.4 mmol/L (3.5-5.1)
[2023-07-04 08:29] LABS: BILIRUBIN,TOTAL 0.7 mg/dL (0.2-1)
[2023-07-04 09:07] LABS: CALCIUM 8.6 mg/dL (8.5-10.1)
[2023-07-04 09:08] LABS: ALBUMIN 2.7 g/dl (3.4-5.0); BLOOD UREA NITROGEN 48.6 mg/dL (7-18)
[2023-07-04 09:11] LABS: CREATININE 1.1 mg/dL (0.55-1.3)
[2023-07-04 09:12] LABS: TOT PROT 4.8 g/dl (6.4-8.2)
[2023-07-04] MEDS: PANTOPRAZOLE 40 MG TABLET PO SCH (10:52)
[2023-07-04] MEDS ORDERED: BISACODYL 5 MG TABLET.DR (FP) PO ONE (16:00)
[2023-07-04 16:46] LABS: BASO % 0.4 % (0-2.0); EOS % 0.6 % (0-4.5); HEMATOCRIT 23.1 % (32.4-45.2); HEMOGLOBIN 7.9 GM/dL (10.7-15.3); LYMPH % 30.6 % (8-40); MCH 32.5 pg (25.7-33.7); MCHC 34.3 g/dl (32.0-36.0); MEAN CELL VOLUME 94.8 fl (80-96); MEAN PLT VOLUME 8.1 fl (7.5-11.1); MONO % 9.3 % (3.8-10.2); NEUT % 59.1 % (42.8-82.8); PLATELET COUNT 160 10^3/uL (134-434); RBC 2.43 M/mm3 (3.60-5.2); RDW 22.4 % (11.6-15.6)
[2023-07-04] MEDS ORDERED: PEG 3350/NA SULF BICARB CL/KCL 4000 ML SOLN.RECON PO ONE (17:00)
[2023-07-04 17:51] LABS: ANISOCYTOSIS 3+; MACROCYTOSIS 1+
[2023-07-04] MEDS: ATORVASTATIN CA 10 MG TABLET (FP) PO SCH (22:20)
[2023-07-05 08:17] LABS: EPI CELLS >36 /uL (0-25.1); HYALINE CASTS 3 /uL (0-3.1); URINE APPEARANCE CLEAR; URINE BACTERIA 170 /uL (0-1359); URINE BILIRUBIN NEGATIVE (NEGATIVE); URINE COLOR YELLOW; URINE GLUCOSE (UA) NEGATIVE (NEGATIVE); URINE KETONE NEGATIVE (NEGATIVE); URINE LEUK ESTERASE TRACE (NEGATIVE); URINE NITRITE NEGATIVE (NEGATIVE); URINE PROTEIN NEGATIVE (NEGATIVE); URINE RBC 9 /uL (0-23.9); URINE UROBILINOGEN 0.2 mg/dL (0.2-1.0); URINE WBC 17 /uL (0-25.8)
[2023-07-05 08:17] LABS: BASO % 0.4 % (0-2.0); EOS % 1.1 % (0-4.5); HEMATOCRIT 22.2 % (32.4-45.2); HEMOGLOBIN 7.3 GM/dL (10.7-15.3); LYMPH % 25.7 % (8-40); MCH 31.6 pg (25.7-33.7); MCHC 32.7 g/dl (32.0-36.0); MEAN CELL VOLUME 96.7 fl (80-96); MEAN PLT VOLUME 8.1 fl (7.5-11.1); MONO % 9.5 % (3.8-10.2); NEUT % 63.3 % (42.8-82.8); PLATELET COUNT 147 10^3/uL (134-434); RDW 21.6 % (11.6-15.6); WHITE BLOOD COUNT 3.5 K/mm3 (4.0-10.0)
[2023-07-05 08:17] LABS: INR 1.17 (0.83-1.09); PROTHROMBIN TIME (PATIENT) 13.6 SEC (9.7-13.0)
[2023-07-05 08:37] LABS: POTASSIUM 3.6 mmol/L (3.5-5.1)
[2023-07-05 08:40] LABS: CALCIUM 8.2 mg/dL (8.5-10.1)
[2023-07-05 08:41] LABS: BLOOD UREA NITROGEN 40.4 mg/dL (7-18)
[2023-07-05] MEDS: PANTOPRAZOLE 40 MG TABLET PO SCH (10:09)
[2023-07-05 18:08] LABS: METHYLMALONIC ACID- 911 nmol/L (0-378)
[2023-07-05] MEDS ORDERED: SODIUM CHLORIDE 1,000 ML IV SCH (19:45)
[2023-07-05] MEDS: ATORVASTATIN CA 10 MG TABLET (FP) PO SCH (22:08)
[2023-07-06 08:28] LABS: POTASSIUM 3.9 mmol/L (3.5-5.1)
[2023-07-06 08:35] LABS: HEMATOCRIT 19.6 % (32.4-45.2); MCH 32.3 pg (25.7-33.7); MCHC 33.9 g/dl (32.0-36.0); MEAN CELL VOLUME 95.5 fl (80-96); MEAN PLT VOLUME 8.1 fl (7.5-11.1); PLATELET COUNT 130 10^3/uL (134-434); RBC 2.06 M/mm3 (3.60-5.2); RDW 21.5 % (11.6-15.6); WHITE BLOOD COUNT 2.9 K/mm3 (4.0-10.0)
[2023-07-06 08:36] LABS: BLOOD UREA NITROGEN 32.9 mg/dL (7-18); CREATININE 0.9 mg/dL (0.55-1.3)
[2023-07-06 08:38] LABS: ALBUMIN 2.5 g/dl (3.4-5.0); BILIRUBIN,TOTAL 0.5 mg/dL (0.2-1); TOT PROT 4.5 g/dl (6.4-8.2)
[2023-07-06 08:41] LABS: CALCIUM 8.1 mg/dL (8.5-10.1)
[2023-07-06 08:43] LABS: HEMOGLOBIN 6.6 GM/dL (10.7-15.3)
[2023-07-06] MEDS: MULTIVITAMINS (DAILY MVI) TABLET (FP) PO SCH (10:18)
[2023-07-06] MEDS: PANTOPRAZOLE 40 MG TABLET PO SCH (10:18)
[2023-07-06] MEDS: ATORVASTATIN CA 10 MG TABLET (FP) PO SCH (21:51)
[2023-07-07] MEDS: PANTOPRAZOLE 40 MG TABLET PO SCH (10:01)
[2023-07-07] MEDS: MULTIVITAMINS (DAILY MVI) TABLET (FP) PO SCH (10:01)
[2023-07-07 10:23] LABS: BASO % 0.4 % (0-2.0); EOS % 0.6 % (0-4.5); HEMATOCRIT 21.7 % (32.4-45.2); HEMOGLOBIN 7.3 GM/dL (10.7-15.3); LYMPH % 22.1 % (8-40); MCH 32.1 pg (25.7-33.7); MCHC 33.5 g/dl (32.0-36.0); MEAN CELL VOLUME 95.9 fl (80-96); NEUT % 69.9 % (42.8-82.8); PLATELET COUNT 123 10^3/uL (134-434); RBC 2.26 M/mm3 (3.60-5.2); RDW 21.9 % (11.6-15.6); WHITE BLOOD COUNT 4.3 K/mm3 (4.0-10.0)
[2023-07-07 10:39] LABS: CHLORIDE 111 mmol/L (98-107); POTASSIUM 3.8 mmol/L (3.5-5.1); SODIUM 141 mmol/L (136-145)
[2023-07-07 10:47] LABS: ANION GAP 3 MMOL/L (8-16); BLOOD UREA NITROGEN 32.5 mg/dL (7-18); CALCIUM 8.4 mg/dL (8.5-10.1); CO2 27 mmol/L (21-32); GLUCOSE,RANDOM 144 mg/dL (74-106)
[2023-07-07 10:48] LABS: ALBUMIN 2.5 g/dl (3.4-5.0); MAGNESIUM 1.7 mg/dL (1.8-2.4)
[2023-07-07 10:50] LABS: SGPT/ALT 10 U/L (13-61)
[2023-07-07 10:53] LABS: ALK PHOS 17 U/L (45-117); BILIRUBIN,TOTAL 0.6 mg/dL (0.2-1); TOT PROT 4.6 g/dl (6.4-8.2)
[2023-07-07 10:58] LABS: SGOT/AST < 3 U/L (15-37)
[2023-07-07] MEDS: ATORVASTATIN CA 10 MG TABLET (FP) PO SCH (21:18)
[2023-07-08 09:37] LABS: BASO % 0.3 % (0-2.0); EOS % 0.5 % (0-4.5); HEMATOCRIT 20.3 % (32.4-45.2); MCH 32.2 pg (25.7-33.7); MCHC 33.9 g/dl (32.0-36.0); MONO % 8.1 % (3.8-10.2); NEUT % 69.1 % (42.8-82.8); PLATELET COUNT 132 10^3/uL (134-434); RBC 2.13 M/mm3 (3.60-5.2); RDW 21.2 % (11.6-15.6); WHITE BLOOD COUNT 4.5 K/mm3 (4.0-10.0)
[2023-07-08 09:40] LABS: HEMOGLOBIN 6.9 GM/dL (10.7-15.3)
[2023-07-08 10:00] LABS: POTASSIUM 3.9 mmol/L (3.5-5.1)
[2023-07-08 10:04] LABS: ALBUMIN 2.6 g/dl (3.4-5.0); BLOOD UREA NITROGEN 31.6 mg/dL (7-18); CALCIUM 8.7 mg/dL (8.5-10.1); MAGNESIUM 1.8 mg/dL (1.8-2.4)
[2023-07-08 10:07] LABS: CREATININE 0.9 mg/dL (0.55-1.3)
[2023-07-08 10:09] LABS: TOT PROT 4.6 g/dl (6.4-8.2)
[2023-07-08 10:12] LABS: BILIRUBIN,TOTAL 0.6 mg/dL (0.2-1)
[2023-07-08 10:41] LABS: ANISOCYTOSIS 2+
[2023-07-08] MEDS: PANTOPRAZOLE 40 MG TABLET PO SCH (11:00)
[2023-07-08] MEDS: MULTIVITAMINS (DAILY MVI) TABLET (FP) PO SCH (11:00)
[2023-07-08 21:06] VITALS: BP 116/56; PULSE 64
[2023-07-08] MEDS: ATORVASTATIN CA 10 MG TABLET (FP) PO SCH (21:34)
[2023-07-08 22:14] VITALS: RESP 18; TEMP 99
== END 2023-07-08 22:20 | disposition short-term general hospital (02) | DRG 378 ==
LOC: JER 18:58 → JERBED 21:18 → J4W 07-01 11:40 → J8W 07-05 20:55
PROVIDERS: ADMIT Internal Medicine; ATTEND Nurse Practitioner Family
PROC: 30233N1 Transfusion of Nonautologous Red Blood Cells into Peripheral Vein, Percutaneous Approach (ICD-10-PCS; 2023-06-30)
PROC: 0DJ08ZZ Inspection of Upper Intestinal Tract, Via Natural or Artificial Opening Endoscopic (ICD-10-PCS; principal; 2023-07-03 13:00)
PROC: 0DJD8ZZ Inspection of Lower Intestinal Tract, Via Natural or Artificial Opening Endoscopic (ICD-10-PCS; 2023-07-05)
DX: K92.2 Gastrointestinal hemorrhage, unspecified (principal); D62 Acute posthemorrhagic anemia; I13.0 Hypertensive heart and chronic kidney disease with heart failure and stage 1 through stage 4 chronic kidney disease, or unspecified chronic kidney disease; N17.9 Acute kidney failure, unspecified; I48.21 Permanent atrial fibrillation; I42.0 Dilated cardiomyopathy; I50.22 Chronic systolic (congestive) heart failure; I25.10 Atherosclerotic heart disease of native coronary artery without angina pectoris; Z79.01 Long term (current) use of anticoagulants; N18.9 Chronic kidney disease, unspecified; K21.9 Gastro-esophageal reflux disease without esophagitis; E78.5 Hyperlipidemia, unspecified; K57.90 Diverticulosis of intestine, part unspecified, without perforation or abscess without bleeding; K29.70 Gastritis, unspecified, without bleeding; D53.9 Nutritional anemia, unspecified; E87.5 Hyperkalemia; I95.89 Other hypotension; I34.0 Nonrheumatic mitral (valve) insufficiency; N28.1 Cyst of kidney, acquired; R82.81 Pyuria; R91.1 Solitary pulmonary nodule; D70.9 Neutropenia, unspecified
CPT/HCPCS: 0241U-QW; 36415; 36430; 71045-TC-FY; 74174-TC; 76775-TC; 78278-TC; 80048; 80053; 81003; 82248; 82272; 82607; 82728; 82746; 83010; 83540; 83550; 83615; 83735; 83880; 83921; 84100; 84484; 85025; 85027; 85045; 85610; 85730; 86850; 86900; 86901; 86922; 87086; 87635; 93005; 93010; 99285-25; A9538; P9058

== ENCOUNTER 2023-09-15 12:51 | Inpatient (IN) | payer OTHER, BC ==
[2023-09-15 13:52] LABS: BASO % 0.7 % (0-2.0); EOS % 0.2 % (0-4.5); HEMATOCRIT 30.9 % (32.4-45.2); HEMOGLOBIN 9.9 GM/dL (10.7-15.3); LYMPH % 22.3 % (8-40); MCH 30.1 pg (25.7-33.7); MEAN CELL VOLUME 94.1 fl (80-96); MEAN PLT VOLUME 7.7 fl (7.5-11.1); NEUT % 67.8 % (42.8-82.8); PLATELET COUNT 169 10^3/uL (134-434); RBC 3.28 M/mm3 (3.60-5.2); RDW 15.7 % (11.6-15.6); WHITE BLOOD COUNT 4.4 K/mm3 (4.0-10.0)
[2023-09-15 14:02] LABS: INR 1.35 (0.83-1.09); PROTHROMBIN TIME (PATIENT) 15.6 SEC (9.7-13.0)
[2023-09-15 14:04] LABS: ACTIVATED PTT 34.8 SECONDS (25.2-36.5)
[2023-09-15 14:15] LABS: POTASSIUM 4.3 mmol/L (3.5-5.1)
[2023-09-15 14:16] LABS: CALCIUM 9.3 mg/dL (8.5-10.1)
[2023-09-15 14:17] LABS: ALBUMIN 3.1 g/dl (3.4-5.0)
[2023-09-15 14:18] LABS: BLOOD UREA NITROGEN 24.7 mg/dL (7-18)
[2023-09-15] MEDS ORDERED: DEXAMETHASONE SOD PHOSPHATE 10 MG/1 ML VIAL IVPUSH ONE (14:19)
[2023-09-15] MEDS ORDERED: VANCOMYCIN 1 GM PREMIX - 1 GM/200 ML BAG IVPB ONE (14:21)
[2023-09-15] MEDS ORDERED: REMDESIVIR 200 MG in SODIUM CHLORIDE 250 ML IVPB ONE (14:21)
[2023-09-15] MEDS ORDERED: PIPERACILLIN/TAZOB 4.5 GM 4.5 GM in DEXTROSE 5%-WATER 100 ML IVPB ONE (14:22)
[2023-09-15] MEDS ORDERED: AZITHROMYCIN IVPB 500 MG in DEXTROSE 5%-WATER - 250 ML IVPB ONE (14:23)
[2023-09-15 14:24] LABS: BILIRUBIN,TOTAL 0.4 mg/dL (0.2-1)
[2023-09-15] MEDS ORDERED: DEXAMETHASONE SOD PHOSPHATE 10 MG/1 ML VIAL ONE (15:00)
[2023-09-15] MEDS ORDERED: PIPERACILLIN/TAZOB 4.5 GM 4.5 GM/100 ML BAG IVPB ONE (15:00)
[2023-09-15 15:11] LABS: EPI CELLS 7 /uL (0-25.1); HYALINE CASTS 2 /uL (0-3.1); PH,URINE 5.5 (5.0-8.0); URINE APPEARANCE CLEAR; URINE BACTERIA 5 /uL (0-1359); URINE BILIRUBIN NEGATIVE (NEGATIVE); URINE COLOR YELLOW; URINE GLUCOSE (UA) NEGATIVE (NEGATIVE); URINE KETONE NEGATIVE (NEGATIVE); URINE LEUK ESTERASE NEGATIVE (NEGATIVE); URINE NITRITE NEGATIVE (NEGATIVE); URINE PROTEIN 1+ (NEGATIVE); URINE RBC 13 /uL (0-23.9); URINE UROBILINOGEN 0.2 mg/dL (0.2-1.0); URINE WBC 8 /uL (0-25.8)
[2023-09-15 15:19] LABS: ARTERIAL BLOOD GAS PO2 132.3 mmHg (80-100); ARTERIAL BLOOD GAS pH 7.252 (7.350-7.450)
[2023-09-15] MEDS ORDERED: FUROSEMIDE 40 MG/4 ML INJECTABLE VIAL IVPUSH ONE (16:13)
[2023-09-15] MEDS ORDERED: AZITHROMYCIN IVPB 500 MG/250 ML BAG IVPB ONE (16:22)
[2023-09-15] MEDS ORDERED: FUROSEMIDE 40 MG/4 ML INJECTABLE VIAL ONE (16:22)
[2023-09-15 18:01] LABS: ARTERIAL BLD GAS O2 SATURATION 93.8 % (95-98); ARTERIAL BLOOD GAS BASE EXCESS 10.6 mmol/L (-2-2); ARTERIAL BLOOD GAS PO2 81.7 mmHg (80-100); ARTERIAL BLOOD GAS pH 7.275 (7.350-7.450)
[2023-09-15] MEDS ORDERED: METOPROLOL TARTRATE 5 MG/5 ML VIAL IVPUSH PRN (18:24)
[2023-09-15] MEDS ORDERED: VANCOMYCIN 1 GRAM (PRE-DOCKED) 1,000 MG/250 ML BAG IVPB ONE (18:26)
[2023-09-15] MEDS: FUROSEMIDE 40 MG/4 ML INJECTABLE VIAL IVPUSH SCH (23:16)
[2023-09-15] MEDS: HEPARIN NA (PORCINE) 5,000 UNITS/ML 1ML VIAL SQ SCH (23:16)
[2023-09-15] MEDS: CHLORHEXIDINE GLUCONATE 4% CLEANSER FOR DECOLONIZATION TP SCH (23:17)
[2023-09-16] MEDS: PIPERACILLIN/TAZOB 4.5 GM 4.5 GM in DEXTROSE 5%-WATER 100 ML IVPB SCH ×4 (02:46→17:50)
[2023-09-16] MEDS: FUROSEMIDE 40 MG/4 ML INJECTABLE VIAL IVPUSH SCH ×3 (04:46→14:12)
[2023-09-16] MEDS: MUPIROCIN 2% TOPICAL OINTMENT FOR DECOLONIZATION NS SCH ×3 (04:48→21:33)
[2023-09-16 06:56] LABS: HEMATOCRIT 30.9 % (32.4-45.2); HEMOGLOBIN 10.2 GM/dL (10.7-15.3); MCH 30.6 pg (25.7-33.7); MCHC 33.1 g/dl (32.0-36.0); MEAN CELL VOLUME 92.6 fl (80-96); MEAN PLT VOLUME 8.2 fl (7.5-11.1); PLATELET COUNT 185 10^3/uL (134-434); RBC 3.34 M/mm3 (3.60-5.2); RDW 15.9 % (11.6-15.6); WHITE BLOOD COUNT 7.3 K/mm3 (4.0-10.0)
[2023-09-16 07:17] LABS: POTASSIUM 3.8 mmol/L (3.5-5.1)
[2023-09-16 07:21] LABS: CALCIUM 9.5 mg/dL (8.5-10.1)
[2023-09-16 07:22] LABS: BLOOD UREA NITROGEN 26.9 mg/dL (7-18); MAGNESIUM 1.9 mg/dL (1.8-2.4)
[2023-09-16 07:25] LABS: PHOSPHOROUS 2.7 mg/dL (2.5-4.9)
[2023-09-16 10:09] LABS: ARTERIAL BLD GAS O2 SATURATION 91.8 % (95-98); ARTERIAL BLOOD GAS BASE EXCESS 16.2 mmol/L (-2-2); ARTERIAL BLOOD GAS PO2 63.4 mmHg (80-100); ARTERIAL BLOOD GAS pH 7.424 (7.350-7.450)
[2023-09-16] MEDS: HEPARIN NA (PORCINE) 5,000 UNITS/ML 1ML VIAL SQ SCH ×2 (10:34→21:31)
[2023-09-16] MEDS: DEXAMETHASONE SOD PHOSPHATE 10 MG/1 ML VIAL IVPUSH SCH (10:34)
[2023-09-16] MEDS: REMDESIVIR 100 MG in SODIUM CHLORIDE 250 ML IVPB SCH (14:12)
[2023-09-16] MEDS: CHLORHEXIDINE GLUCONATE 4% CLEANSER FOR DECOLONIZATION TP SCH (21:31)
[2023-09-17] MEDS: FUROSEMIDE 40 MG/4 ML INJECTABLE VIAL IVPUSH SCH (00:29)
[2023-09-17] MEDS: PIPERACILLIN/TAZOB 4.5 GM 4.5 GM in DEXTROSE 5%-WATER 100 ML IVPB SCH ×2 (01:58→09:24)
[2023-09-17 06:36] LABS: BASO % 0.5 % (0-2.0); HEMATOCRIT 33.2 % (32.4-45.2); HEMOGLOBIN 10.9 GM/dL (10.7-15.3); MCH 30.1 pg (25.7-33.7); MCHC 32.8 g/dl (32.0-36.0); MEAN CELL VOLUME 91.7 fl (80-96); MEAN PLT VOLUME 8.3 fl (7.5-11.1); MONO % 8.9 % (3.8-10.2); NEUT % 72.6 % (42.8-82.8); PLATELET COUNT 193 10^3/uL (134-434); RBC 3.61 M/mm3 (3.60-5.2); RDW 16.5 % (11.6-15.6); WHITE BLOOD COUNT 6.1 K/mm3 (4.0-10.0)
[2023-09-17 07:05] LABS: POTASSIUM 3.7 mmol/L (3.5-5.1)
[2023-09-17 07:10] LABS: ALBUMIN 2.8 g/dl (3.4-5.0); BLOOD UREA NITROGEN 38.2 mg/dL (7-18); CALCIUM 9.3 mg/dL (8.5-10.1); MAGNESIUM 1.9 mg/dL (1.8-2.4)
[2023-09-17 07:13] LABS: CREATININE 1.3 mg/dL (0.55-1.3); PHOSPHOROUS 3.2 mg/dL (2.5-4.9)
[2023-09-17 07:14] LABS: BILIRUBIN,TOTAL 0.7 mg/dL (0.2-1); TOT PROT 5.7 g/dl (6.4-8.2)
[2023-09-17] MEDS: DEXAMETHASONE SOD PHOSPHATE 10 MG/1 ML VIAL IVPUSH SCH (09:24)
[2023-09-17] MEDS: HEPARIN NA (PORCINE) 5,000 UNITS/ML 1ML VIAL SQ SCH ×2 (09:25→21:00)
[2023-09-17] MEDS: MUPIROCIN 2% TOPICAL OINTMENT FOR DECOLONIZATION NS SCH ×2 (09:25→21:01)
[2023-09-17] MEDS ORDERED: PANTOPRAZOLE SODIUM 40 MG VIAL IVPUSH SCH (10:00)
[2023-09-17] MEDS ORDERED: METOPROLOL TARTRATE 5 MG/5 ML VIAL IVPUSH PRN (10:35)
[2023-09-17 12:28] LABS: ERYTHROCYTE SEDIMENTATION RATE 7 mm/hr (0-30)
[2023-09-17] MEDS: REMDESIVIR 100 MG in SODIUM CHLORIDE 250 ML IVPB SCH (16:11)
[2023-09-17] MEDS: PIPERACILLIN/TAZOB 3.375 GM 3.375 GM in DEXTROSE 5%-WATER - 50 ML IVPB SCH (17:18)
[2023-09-17] MEDS: CHLORHEXIDINE GLUCONATE 4% CLEANSER FOR DECOLONIZATION TP SCH (21:01)
[2023-09-18] MEDS: PIPERACILLIN/TAZOB 3.375 GM 3.375 GM in DEXTROSE 5%-WATER - 50 ML IVPB SCH ×3 (02:32→17:09)
[2023-09-18 06:28] LABS: BASO % 0.2 % (0-2.0); HEMATOCRIT 34.8 % (32.4-45.2); HEMOGLOBIN 11.5 GM/dL (10.7-15.3); MCH 30.4 pg (25.7-33.7); MEAN CELL VOLUME 92.2 fl (80-96); MEAN PLT VOLUME 8.2 fl (7.5-11.1); MONO % 11.9 % (3.8-10.2); NEUT % 66.9 % (42.8-82.8); PLATELET COUNT 187 10^3/uL (134-434); RBC 3.78 M/mm3 (3.60-5.2); RDW 16.5 % (11.6-15.6); WHITE BLOOD COUNT 6.3 K/mm3 (4.0-10.0)
[2023-09-18 06:43] LABS: CHLORIDE 92 mmol/L (98-107); POTASSIUM 3.5 mmol/L (3.5-5.1); SODIUM 141 mmol/L (136-145)
[2023-09-18 06:48] LABS: ALBUMIN 2.7 g/dl (3.4-5.0); BLOOD UREA NITROGEN 46.1 mg/dL (7-18); CALCIUM 9.4 mg/dL (8.5-10.1); GLUCOSE,RANDOM 115 mg/dL (74-106); MAGNESIUM 1.7 mg/dL (1.8-2.4)
[2023-09-18 06:51] LABS: CREATININE 1.4 mg/dL (0.55-1.3); PHOSPHOROUS 3.9 mg/dL (2.5-4.9); SGOT/AST 6 U/L (15-37); SGPT/ALT 12 U/L (13-61)
[2023-09-18 06:53] LABS: BILIRUBIN,TOTAL 0.4 mg/dL (0.2-1); TOT PROT 5.5 g/dl (6.4-8.2)
[2023-09-18 06:54] LABS: ALK PHOS 32 U/L (45-117)
[2023-09-18 07:21] LABS: ANION GAP 3 mmol/L (4-13); CO2 > 45 mmol/L (21-32)
[2023-09-18] MEDS ORDERED: MAGNESIUM SULF 50% (8.12 MEQ/2 ML-1 GM VIAL) IVPB ONE (08:00)
[2023-09-18 09:08] LABS: ERYTHROCYTE SEDIMENTATION RATE 7 mm/hr (0-30)
[2023-09-18] MEDS: HEPARIN NA (PORCINE) 5,000 UNITS/ML 1ML VIAL SQ SCH (09:38)
[2023-09-18] MEDS: DEXAMETHASONE SOD PHOSPHATE 10 MG/1 ML VIAL IVPUSH SCH (09:38)
[2023-09-18] MEDS: MUPIROCIN 2% TOPICAL OINTMENT FOR DECOLONIZATION NS SCH ×2 (09:39→21:15)
[2023-09-18] MEDS ORDERED: FUROSEMIDE 40 MG/4 ML INJECTABLE VIAL IVPUSH SCH (10:00)
[2023-09-18] MEDS: REMDESIVIR 100 MG in SODIUM CHLORIDE 250 ML IVPB SCH (14:28)
[2023-09-18] MEDS: ATORVASTATIN CA 10 MG TABLET (FP) PO SCH (21:15)
[2023-09-18] MEDS: CHLORHEXIDINE GLUCONATE 4% CLEANSER FOR DECOLONIZATION TP SCH (21:15)
[2023-09-18] MEDS: SPIRONOLACTONE 25 MG TABLET PO SCH (21:15)
[2023-09-18] MEDS: APIXABAN 5 MG TABLET PO SCH (21:15)
[2023-09-19] MEDS: PIPERACILLIN/TAZOB 3.375 GM 3.375 GM in DEXTROSE 5%-WATER - 50 ML IVPB SCH ×3 (01:09→18:45)
[2023-09-19 06:41] LABS: HEMATOCRIT 32.6 % (32.4-45.2); HEMOGLOBIN 10.8 GM/dL (10.7-15.3); MCH 30.4 pg (25.7-33.7); MCHC 33.2 g/dl (32.0-36.0); MEAN CELL VOLUME 91.7 fl (80-96); MEAN PLT VOLUME 8.4 fl (7.5-11.1); PLATELET COUNT 179 10^3/uL (134-434); RBC 3.56 M/mm3 (3.60-5.2); RDW 16.2 % (11.6-15.6)
[2023-09-19 06:49] LABS: CHLORIDE 94 mmol/L (98-107); POTASSIUM 3.5 mmol/L (3.5-5.1); SODIUM 141 mmol/L (136-145)
[2023-09-19 06:52] LABS: ALBUMIN 2.6 g/dl (3.4-5.0); ANION GAP 2 mmol/L (4-13); BLOOD UREA NITROGEN 45.7 mg/dL (7-18); CALCIUM 9.2 mg/dL (8.5-10.1); CO2 45 mmol/L (21-32); GLUCOSE,RANDOM 112 mg/dL (74-106); MAGNESIUM 2.5 mg/dL (1.8-2.4)
[2023-09-19 06:54] LABS: CREATININE 1.2 mg/dL (0.55-1.3); PHOSPHOROUS 3.2 mg/dL (2.5-4.9); SGOT/AST < 3 U/L (15-37); SGPT/ALT 10 U/L (13-61)
[2023-09-19 06:57] LABS: BILIRUBIN,TOTAL 0.4 mg/dL (0.2-1); TOT PROT 5.3 g/dl (6.4-8.2)
[2023-09-19 06:58] LABS: ALK PHOS 27 U/L (45-117)
[2023-09-19] MEDS: SPIRONOLACTONE 25 MG TABLET PO SCH ×2 (10:40→21:00)
[2023-09-19] MEDS: MUPIROCIN 2% TOPICAL OINTMENT FOR DECOLONIZATION NS SCH ×2 (10:40→21:01)
[2023-09-19] MEDS: APIXABAN 5 MG TABLET PO SCH ×2 (10:40→21:01)
[2023-09-19] MEDS: DEXAMETHASONE SOD PHOSPHATE 10 MG/1 ML VIAL IVPUSH SCH (10:41)
[2023-09-19] MEDS: CARVEDILOL PHOSPHATE CR 40 MG CAPSULE (FP) PO SCH (10:41)
[2023-09-19] MEDS: REMDESIVIR 100 MG in SODIUM CHLORIDE 250 ML IVPB SCH (15:00)
[2023-09-19] MEDS: ATORVASTATIN CA 10 MG TABLET (FP) PO SCH (21:00)
[2023-09-19] MEDS: CHLORHEXIDINE GLUCONATE 4% CLEANSER FOR DECOLONIZATION TP SCH (21:01)
[2023-09-20] MEDS: PIPERACILLIN/TAZOB 3.375 GM 3.375 GM in DEXTROSE 5%-WATER - 50 ML IVPB SCH ×3 (02:14→17:02)
[2023-09-20 06:57] LABS: BASO % 0.2 % (0-2.0); EOS % 0.2 % (0-4.5); HEMATOCRIT 32.4 % (32.4-45.2); HEMOGLOBIN 10.5 GM/dL (10.7-15.3); LYMPH % 18.8 % (8-40); MCH 29.9 pg (25.7-33.7); MCHC 32.5 g/dl (32.0-36.0); MEAN CELL VOLUME 92.1 fl (80-96); MEAN PLT VOLUME 8.3 fl (7.5-11.1); MONO % 9.6 % (3.8-10.2); NEUT % 71.2 % (42.8-82.8); PLATELET COUNT 155 10^3/uL (134-434); RBC 3.52 M/mm3 (3.60-5.2); RDW 16.2 % (11.6-15.6); WHITE BLOOD COUNT 4.5 K/mm3 (4.0-10.0)
[2023-09-20 07:11] LABS: POTASSIUM 3.6 mmol/L (3.5-5.1)
[2023-09-20 07:21] LABS: ALBUMIN 2.6 g/dl (3.4-5.0); BLOOD UREA NITROGEN 47.1 mg/dL (7-18); CALCIUM 9.4 mg/dL (8.5-10.1)
[2023-09-20 07:23] LABS: MAGNESIUM 2.3 mg/dL (1.8-2.4); PHOSPHOROUS 3.4 mg/dL (2.5-4.9)
[2023-09-20 07:26] LABS: BILIRUBIN,TOTAL 0.4 mg/dL (0.2-1); TOT PROT 5.2 g/dl (6.4-8.2)
[2023-09-20] MEDS: CARVEDILOL PHOSPHATE CR 40 MG CAPSULE (FP) PO SCH (09:41)
[2023-09-20] MEDS: APIXABAN 5 MG TABLET PO SCH ×2 (09:41→21:54)
[2023-09-20] MEDS: DEXAMETHASONE SOD PHOSPHATE 10 MG/1 ML VIAL IVPUSH SCH (09:42)
[2023-09-20] MEDS: SPIRONOLACTONE 25 MG TABLET PO SCH ×2 (09:42→21:54)
[2023-09-20] MEDS: MUPIROCIN 2% TOPICAL OINTMENT FOR DECOLONIZATION NS SCH (09:42)
[2023-09-20] MEDS ORDERED: PANTOPRAZOLE SODIUM 40 MG VIAL IVPUSH SCH (10:00)
[2023-09-20] MEDS: ATORVASTATIN CA 10 MG TABLET (FP) PO SCH (21:54)
[2023-09-20] MEDS: CHLORHEXIDINE GLUCONATE 4% CLEANSER FOR DECOLONIZATION TP SCH (21:55)
[2023-09-20] MEDS ORDERED: POLYETHYLENE GLYCOL (HEALTHYLAX) 3350 17 GM PACKET PO ONE (22:15)
[2023-09-21] MEDS: PIPERACILLIN/TAZOB 3.375 GM 3.375 GM in DEXTROSE 5%-WATER - 50 ML IVPB SCH ×3 (02:15→17:35)
[2023-09-21] MEDS: DEXAMETHASONE SOD PHOSPHATE 10 MG/1 ML VIAL IVPUSH SCH (10:50)
[2023-09-21] MEDS: APIXABAN 5 MG TABLET PO SCH ×2 (10:51→21:32)
[2023-09-21] MEDS: SPIRONOLACTONE 25 MG TABLET PO SCH ×2 (10:51→21:32)
[2023-09-21] MEDS: CARVEDILOL PHOSPHATE CR 40 MG CAPSULE (FP) PO SCH (11:01)
[2023-09-21] MEDS: ATORVASTATIN CA 10 MG TABLET (FP) PO SCH (21:32)
[2023-09-21] MEDS: CHLORHEXIDINE GLUCONATE 4% CLEANSER FOR DECOLONIZATION TP SCH (21:33)
[2023-09-22] MEDS: PIPERACILLIN/TAZOB 3.375 GM 3.375 GM in DEXTROSE 5%-WATER - 50 ML IVPB SCH ×3 (01:25→19:00)
[2023-09-22] MEDS: APIXABAN 5 MG TABLET PO SCH ×2 (10:17→21:28)
[2023-09-22] MEDS: SPIRONOLACTONE 25 MG TABLET PO SCH ×2 (10:17→21:28)
[2023-09-22] MEDS: DEXAMETHASONE SOD PHOSPHATE 10 MG/1 ML VIAL IVPUSH SCH (10:18)
[2023-09-22] MEDS: CARVEDILOL PHOSPHATE CR 40 MG CAPSULE (FP) PO SCH (11:55)
[2023-09-22 13:57] VITALS: BMI 31.3
[2023-09-22] MEDS: CHLORHEXIDINE GLUCONATE 4% CLEANSER FOR DECOLONIZATION TP SCH (21:28)
[2023-09-22] MEDS: ATORVASTATIN CA 10 MG TABLET (FP) PO SCH (21:28)
[2023-09-23] MEDS: PIPERACILLIN/TAZOB 3.375 GM 3.375 GM in DEXTROSE 5%-WATER - 50 ML IVPB SCH ×3 (02:20→17:00)
[2023-09-23] MEDS: SPIRONOLACTONE 25 MG TABLET PO SCH ×2 (09:06→21:47)
[2023-09-23] MEDS: DEXAMETHASONE SOD PHOSPHATE 10 MG/1 ML VIAL IVPUSH SCH (09:06)
[2023-09-23] MEDS: APIXABAN 5 MG TABLET PO SCH ×2 (09:06→21:47)
[2023-09-23] MEDS: CARVEDILOL PHOSPHATE CR 40 MG CAPSULE (FP) PO SCH (10:36)
[2023-09-23] MEDS: ATORVASTATIN CA 10 MG TABLET (FP) PO SCH (21:47)
[2023-09-23] MEDS: CHLORHEXIDINE GLUCONATE 4% CLEANSER FOR DECOLONIZATION TP SCH (21:48)
[2023-09-24] MEDS: PIPERACILLIN/TAZOB 3.375 GM 3.375 GM in DEXTROSE 5%-WATER - 50 ML IVPB SCH ×2 (02:10→10:00)
[2023-09-24] MEDS: APIXABAN 5 MG TABLET PO SCH ×2 (09:59→21:22)
[2023-09-24] MEDS: DEXAMETHASONE SOD PHOSPHATE 10 MG/1 ML VIAL IVPUSH SCH (09:59)
[2023-09-24] MEDS: CARVEDILOL PHOSPHATE CR 40 MG CAPSULE (FP) PO SCH (10:00)
[2023-09-24] MEDS: SPIRONOLACTONE 25 MG TABLET PO SCH ×2 (10:00→21:22)
[2023-09-24] MEDS: ATORVASTATIN CA 10 MG TABLET (FP) PO SCH (21:22)
[2023-09-24] MEDS: CHLORHEXIDINE GLUCONATE 4% CLEANSER FOR DECOLONIZATION TP SCH (21:22)
[2023-09-25] MEDS: SPIRONOLACTONE 25 MG TABLET PO SCH ×2 (09:02→21:51)
[2023-09-25] MEDS: CARVEDILOL PHOSPHATE CR 40 MG CAPSULE (FP) PO SCH (09:03)
[2023-09-25] MEDS: APIXABAN 5 MG TABLET PO SCH ×2 (09:03→21:51)
[2023-09-25] MEDS: DEXAMETHASONE SOD PHOSPHATE 10 MG/1 ML VIAL IVPUSH SCH (09:03)
[2023-09-25] MEDS ORDERED: CALCIUM CARBONATE 650 MG TABLET PO ONE (13:22)
[2023-09-25] MEDS: FUROSEMIDE 20 MG TABLET (FP) PO SCH (15:37)
[2023-09-25] MEDS: MAG HYDROX/AL HYDROX/SIMETH 30 ML UNIT-DOSE CUP PO PRN (21:51)
[2023-09-25] MEDS: ATORVASTATIN CA 10 MG TABLET (FP) PO SCH (21:51)
[2023-09-25] MEDS: CHLORHEXIDINE GLUCONATE 4% CLEANSER FOR DECOLONIZATION TP SCH (21:52)
[2023-09-25] MEDS ORDERED: SACUBITRIL/VALSARTAN 24 MG-26 MG TABLET PO SCH (22:00)
[2023-09-26] MEDS: ACETAMINOPHEN 500 MG TABLET (FP) PO PRN ×2 (03:35→08:52)
[2023-09-26 04:27] VITALS: TEMP 97.8
[2023-09-26 07:25] LABS: HEMATOCRIT 27.8 % (32.4-45.2); HEMOGLOBIN 8.8 GM/dL (10.7-15.3); MCH 29.4 pg (25.7-33.7); MCHC 31.6 g/dl (32.0-36.0); MEAN CELL VOLUME 92.9 fl (80-96); PLATELET COUNT 140 10^3/uL (134-434); RBC 2.99 M/mm3 (3.60-5.2); RDW 15.8 % (11.6-15.6); WHITE BLOOD COUNT 9.7 K/mm3 (4.0-10.0)
[2023-09-26 07:48] LABS: POTASSIUM 5.1 mmol/L (3.5-5.1)
[2023-09-26 08:04] LABS: CALCIUM 9.4 mg/dL (8.5-10.1)
[2023-09-26 08:08] LABS: CREATININE 0.9 mg/dL (0.55-1.3)
[2023-09-26 08:24] LABS: BLOOD UREA NITROGEN 72.9 mg/dL (7-18)
[2023-09-26] MEDS: MAG HYDROX/AL HYDROX/SIMETH 30 ML UNIT-DOSE CUP PO PRN (08:51)
[2023-09-26] MEDS: SPIRONOLACTONE 25 MG TABLET PO SCH (09:33)
[2023-09-26] MEDS: APIXABAN 5 MG TABLET PO SCH (09:33)
[2023-09-26] MEDS: FUROSEMIDE 20 MG TABLET (FP) PO SCH (09:33)
[2023-09-26] MEDS: CARVEDILOL PHOSPHATE CR 40 MG CAPSULE (FP) PO SCH (09:34)
[2023-09-26 12:54] VITALS: BP 114/53; PULSE 76; RESP 18
== END 2023-09-26 13:55 | DRG 177 ==
LOC: JER 12:51 → JICU 14:59 → J2W 09-20 23:47
PROVIDERS: ADMIT Internal Medicine Pulmonary Disease; ATTEND Internal Medicine
PROC: XW033E5 Introduction of Remdesivir Anti-infective into Peripheral Vein, Percutaneous Approach, New Technology Group 5 (ICD-10-PCS; principal; 2023-09-15)
DX: U07.1 COVID-19 (principal); G93.41 Metabolic encephalopathy; I50.33 Acute on chronic diastolic (congestive) heart failure; J96.22 Acute and chronic respiratory failure with hypercapnia; J96.21 Acute and chronic respiratory failure with hypoxia; J18.9 Pneumonia, unspecified organism; I31.39 Other pericardial effusion (noninflammatory); I48.21 Permanent atrial fibrillation; I13.0 Hypertensive heart and chronic kidney disease with heart failure and stage 1 through stage 4 chronic kidney disease, or unspecified chronic kidney disease; I42.0 Dilated cardiomyopathy; E87.29 Other acidosis; E78.5 Hyperlipidemia, unspecified; I25.10 Atherosclerotic heart disease of native coronary artery without angina pectoris; N18.9 Chronic kidney disease, unspecified
CPT/HCPCS: 0241U-QW; 36415; 36600; 70450-TC; 71045-TC-FY; 71250-TC; 80048; 80053; 80061; 81003; 82550; 82803; 83036; 83735; 83880; 84100; 84484; 85025; 85027; 85610; 85651; 85730; 86140; 86850; 86900; 86901; 87040; 87081; 87899; 93005; 93010; 93306-TC; 94010; 94660; 94761; 97116-GP; 97162-GP; 99291; J0248; J1100; J1644

== ENCOUNTER 2023-09-29 14:48 | Inpatient (IN) | payer OTHER, BC ==
[2023-09-29 15:33] VITALS: BMI 28.6
[2023-09-29 16:07] LABS: BASO % 0.4 % (0-2.0); EOS % 0.7 % (0-4.5); HEMATOCRIT 21.3 % (32.4-45.2); LYMPH % 12.8 % (8-40); MCH 30.1 pg (25.7-33.7); MCHC 32.7 g/dl (32.0-36.0); MEAN CELL VOLUME 91.9 fl (80-96); MONO % 10.6 % (3.8-10.2); NEUT % 75.5 % (42.8-82.8); PLATELET COUNT 99 10^3/uL (134-434); RBC 2.32 M/mm3 (3.60-5.2); RDW 16.5 % (11.6-15.6); WHITE BLOOD COUNT 6.8 K/mm3 (4.0-10.0)
[2023-09-29 16:17] LABS: INR 1.34 (0.83-1.09); PROTHROMBIN TIME (PATIENT) 15.5 SEC (9.7-13.0)
[2023-09-29 16:20] LABS: ACTIVATED PTT 38.8 SECONDS (25.2-36.5)
[2023-09-29 16:24] LABS: POTASSIUM 4.8 mmol/L (3.5-5.1)
[2023-09-29 16:26] LABS: CALCIUM 9.3 mg/dL (8.5-10.1)
[2023-09-29 16:27] LABS: ALBUMIN 2.5 g/dl (3.4-5.0)
[2023-09-29 16:30] LABS: CREATININE 0.9 mg/dL (0.55-1.3)
[2023-09-29 16:31] LABS: TOT PROT 4.7 g/dl (6.4-8.2)
[2023-09-29 16:32] LABS: BILIRUBIN,TOTAL 0.5 mg/dL (0.2-1)
[2023-09-29 16:34] LABS: BLOOD UREA NITROGEN 40.8 mg/dL (7-18)
[2023-09-29] MEDS ORDERED: FUROSEMIDE 40 MG/4 ML INJECTABLE VIAL IVPUSH ONE (19:21)
[2023-09-30] MEDS: PANTOPRAZOLE SODIUM 80 MG in SODIUM CHLORIDE 100 ML IVPB SCH ×3 (00:40→15:16)
[2023-09-30 08:23] LABS: HEMATOCRIT 24.6 % (32.4-45.2); HEMOGLOBIN 8.1 GM/dL (10.7-15.3); MCH 30.3 pg (25.7-33.7); MCHC 32.8 g/dl (32.0-36.0); MEAN CELL VOLUME 92.4 fl (80-96); MEAN PLT VOLUME 9.3 fl (7.5-11.1); PLATELET COUNT 99 10^3/uL (134-434); RBC 2.66 M/mm3 (3.60-5.2); RDW 15.5 % (11.6-15.6); WHITE BLOOD COUNT 5.8 K/mm3 (4.0-10.0)
[2023-09-30 08:37] LABS: POTASSIUM 4.6 mmol/L (3.5-5.1)
[2023-09-30 08:46] VITALS: RESP 20
[2023-09-30 08:49] LABS: CALCIUM 9.2 mg/dL (8.5-10.1)
[2023-09-30 08:50] LABS: ALBUMIN 2.4 g/dl (3.4-5.0); BLOOD UREA NITROGEN 32.2 mg/dL (7-18); MAGNESIUM 2.4 mg/dL (1.8-2.4)
[2023-09-30 08:52] LABS: CREATININE 0.8 mg/dL (0.55-1.3)
[2023-09-30 08:54] LABS: TOT PROT 4.8 g/dl (6.4-8.2)
[2023-09-30] MEDS ORDERED: CARVEDILOL PHOSPHATE CR 20 MG CAPSULE PO SCH (10:00)
[2023-09-30 15:46] VITALS: TEMP 98
[2023-09-30 19:43] VITALS: BP 103/64; PULSE 76
== END 2023-09-30 19:50 | disposition short-term general hospital (02) | DRG 377 ==
LOC: JER 14:48 → JERBED 19:19
PROVIDERS: ADMIT Internal Medicine; ATTEND Internal Medicine
DX: K92.2 Gastrointestinal hemorrhage, unspecified (principal); U07.1 COVID-19; D62 Acute posthemorrhagic anemia; I50.22 Chronic systolic (congestive) heart failure; I48.91 Unspecified atrial fibrillation; I11.0 Hypertensive heart disease with heart failure; T45.515A Adverse effect of anticoagulants, initial encounter; I25.10 Atherosclerotic heart disease of native coronary artery without angina pectoris; E78.5 Hyperlipidemia, unspecified; K21.9 Gastro-esophageal reflux disease without esophagitis; K57.90 Diverticulosis of intestine, part unspecified, without perforation or abscess without bleeding; Z85.3 Personal history of malignant neoplasm of breast
CPT/HCPCS: 0241U-QW; 36415; 36430; 71045-TC-FY; 74177-TC; 80053; 82272; 83735; 83880; 84100; 84484; 85025; 85027; 85610; 85730; 86850; 86900; 86901; 86922; 93005; 93010; 99285-25; P9058; Q9967

== ENCOUNTER 2023-11-12 18:45 | Inpatient (IN) | payer OTHER, BC ==
[2023-11-12] MEDS: FUROSEMIDE 40 MG/4 ML INJECTABLE VIAL IVPUSH ONE ×2 (20:43→21:01)
[2023-11-12] MEDS ORDERED: FUROSEMIDE 40 MG/4 ML INJECTABLE VIAL ONE (20:55)
[2023-11-12 20:59] LABS: BASO % 0.5 % (0-2.0); EOS % 0.6 % (0-4.5); HEMATOCRIT 29.2 % (32.4-45.2); HEMOGLOBIN 9.4 GM/dL (10.7-15.3); LYMPH % 40.8 % (8-40); MCH 29.4 pg (25.7-33.7); MCHC 32.2 g/dl (32.0-36.0); MEAN CELL VOLUME 91.5 fl (80-96); MEAN PLT VOLUME 7.3 fl (7.5-11.1); MONO % 9.7 % (3.8-10.2); NEUT % 48.4 % (42.8-82.8); PLATELET COUNT 207 10^3/uL (134-434); RBC 3.19 M/mm3 (3.60-5.2); RDW 19.1 % (11.6-15.6); WHITE BLOOD COUNT 3.9 K/mm3 (4.0-10.0)
[2023-11-12 21:18] LABS: POTASSIUM 4.4 mmol/L (3.5-5.1)
[2023-11-12 21:20] LABS: CALCIUM 9.5 mg/dL (8.5-10.1)
[2023-11-12 21:21] LABS: ALBUMIN 3.4 g/dl (3.4-5.0); BLOOD UREA NITROGEN 26.9 mg/dL (7-18); MAGNESIUM 1.9 mg/dL (1.8-2.4)
[2023-11-12 21:24] LABS: CREATININE 1.1 mg/dL (0.55-1.3)
[2023-11-12 21:25] LABS: BILIRUBIN,TOTAL 0.5 mg/dL (0.2-1); TOT PROT 6.4 g/dl (6.4-8.2)
[2023-11-12 21:29] LABS: N-TERMINAL BNP 1700.9 pg/ml (5-450)
[2023-11-13] MEDS ORDERED: FUROSEMIDE 40 MG/4 ML INJECTABLE VIAL IVPUSH SCH (06:00)
[2023-11-13 06:43] LABS: BASO % 0.6 % (0-2.0); EOS % 0.8 % (0-4.5); HEMOGLOBIN 9.1 GM/dL (10.7-15.3); LYMPH % 43.6 % (8-40); MCH 29.6 pg (25.7-33.7); MCHC 32.6 g/dl (32.0-36.0); MEAN CELL VOLUME 90.9 fl (80-96); MEAN PLT VOLUME 7.5 fl (7.5-11.1); MONO % 12.2 % (3.8-10.2); NEUT % 42.8 % (42.8-82.8); PLATELET COUNT 201 10^3/uL (134-434); RBC 3.08 M/mm3 (3.60-5.2); RDW 18.2 % (11.6-15.6); WHITE BLOOD COUNT 3.5 K/mm3 (4.0-10.0)
[2023-11-13 07:06] LABS: POTASSIUM 4.4 mmol/L (3.5-5.1)
[2023-11-13 07:11] LABS: ALBUMIN 3.2 g/dl (3.4-5.0); CALCIUM 9.4 mg/dL (8.5-10.1); MAGNESIUM 1.8 mg/dL (1.8-2.4)
[2023-11-13 07:14] LABS: CREATININE 1.1 mg/dL (0.55-1.3); PHOSPHOROUS 4.3 mg/dL (2.5-4.9)
[2023-11-13 07:15] LABS: TOT PROT 6.1 g/dl (6.4-8.2)
[2023-11-13 07:16] LABS: BILIRUBIN,TOTAL 0.5 mg/dL (0.2-1)
[2023-11-13] MEDS: PANTOPRAZOLE 40 MG TABLET PO SCH (08:00)
[2023-11-13] MEDS: LEVOTHYROXINE NA 50 MCG TABLET (FP) PO SCH (08:00)
[2023-11-13] MEDS ORDERED: PANTOPRAZOLE 40 MG TABLET PO ONE (08:04)
[2023-11-13] MEDS ORDERED: LEVOTHYROXINE NA 50 MCG TABLET (FP) ONE (08:04)
[2023-11-13] MEDS ORDERED: APIXABAN 2.5 MG TABLET ONE (10:13)
[2023-11-13] MEDS: APIXABAN 2.5 MG TABLET PO SCH (10:20)
[2023-11-13] MEDS: SPIRONOLACTONE 25 MG TABLET PO SCH (11:47)
[2023-11-13] MEDS: CARVEDILOL 3.125 MG TABLET (FP) PO SCH (11:48)
[2023-11-13] MEDS: SACUBITRIL/VALSARTAN 24 MG-26 MG TABLET PO SCH ×2 (11:49→21:21)
[2023-11-13] MEDS: FUROSEMIDE 40 MG/4 ML INJECTABLE VIAL IVPUSH SCH (12:05)
[2023-11-13] MEDS: ATORVASTATIN CA 10 MG TABLET (FP) PO SCH (21:24)
[2023-11-14 06:54] LABS: HEMATOCRIT 25.3 % (32.4-45.2); HEMOGLOBIN 8.3 GM/dL (10.7-15.3); MCH 29.7 pg (25.7-33.7); MCHC 32.8 g/dl (32.0-36.0); MEAN CELL VOLUME 90.6 fl (80-96); MEAN PLT VOLUME 7.5 fl (7.5-11.1); PLATELET COUNT 188 10^3/uL (134-434); RBC 2.79 M/mm3 (3.60-5.2); RDW 18.2 % (11.6-15.6); WHITE BLOOD COUNT 3.7 K/mm3 (4.0-10.0)
[2023-11-14 07:04] LABS: POTASSIUM 3.8 mmol/L (3.5-5.1)
[2023-11-14 07:07] LABS: MAGNESIUM 2.2 mg/dL (1.8-2.4)
[2023-11-14 07:11] LABS: CREATININE 1.2 mg/dL (0.55-1.3)
[2023-11-14 07:12] LABS: BILIRUBIN,TOTAL 0.8 mg/dL (0.2-1); TOT PROT 5.5 g/dl (6.4-8.2)
[2023-11-14] MEDS: POLYETHYLENE GLYCOL (HEALTHYLAX) 3350 17 GM PACKET PO SCH (21:11)
[2023-11-14] MEDS: SENNOSIDES 8.6MG TABLET (FP) PO SCH (21:43)
[2023-11-15] MEDS: PANTOPRAZOLE 40 MG TABLET PO SCH (06:42)
[2023-11-15 06:54] LABS: HEMATOCRIT 26.2 % (32.4-45.2); HEMOGLOBIN 8.5 GM/dL (10.7-15.3); MCH 29.5 pg (25.7-33.7); MCHC 32.6 g/dl (32.0-36.0); MEAN CELL VOLUME 90.6 fl (80-96); MEAN PLT VOLUME 7.5 fl (7.5-11.1); PLATELET COUNT 174 10^3/uL (134-434); RBC 2.89 M/mm3 (3.60-5.2)
[2023-11-15] MEDS: LEVOTHYROXINE SODIUM 100 MCG 5 ML VIAL IVPUSH SCH (07:05)
[2023-11-15 07:24] LABS: CALCIUM 9.5 mg/dL (8.5-10.1)
[2023-11-15 07:26] LABS: MAGNESIUM 2.1 mg/dL (1.8-2.4)
[2023-11-15 07:29] LABS: CREATININE 1.3 mg/dL (0.55-1.3)
[2023-11-15 07:30] LABS: BILIRUBIN,TOTAL 0.7 mg/dL (0.2-1); TOT PROT 5.6 g/dl (6.4-8.2)
[2023-11-15] MEDS ORDERED: LEVOTHYROXINE SODIUM 100 MCG 5 ML VIAL IVPUSH SCH (10:00)
[2023-11-15] MEDS: FUROSEMIDE 40 MG/4 ML INJECTABLE VIAL IVPUSH SCH (10:45)
[2023-11-15] MEDS: IRON SUCROSE INJECTION 200 MG in SODIUM CHLORIDE 100 ML IVPB ONE (17:23)
[2023-11-16 07:44] LABS: HEMATOCRIT 25.6 % (32.4-45.2); HEMOGLOBIN 8.3 GM/dL (10.7-15.3); MCH 29.2 pg (25.7-33.7); MCHC 32.3 g/dl (32.0-36.0); MEAN CELL VOLUME 90.5 fl (80-96); MEAN PLT VOLUME 7.6 fl (7.5-11.1); PLATELET COUNT 174 10^3/uL (134-434); RBC 2.83 M/mm3 (3.60-5.2); RDW 17.9 % (11.6-15.6); WHITE BLOOD COUNT 2.7 K/mm3 (4.0-10.0)
[2023-11-16 08:03] LABS: ALBUMIN 2.8 g/dl (3.4-5.0); BLOOD UREA NITROGEN 32.9 mg/dL (7-18)
[2023-11-16 08:04] LABS: BILIRUBIN,TOTAL 0.7 mg/dL (0.2-1); TOT PROT 5.5 g/dl (6.4-8.2)
[2023-11-16 08:06] LABS: CREATININE 1.1 mg/dL (0.55-1.3); MAGNESIUM 2.1 mg/dL (1.8-2.4)
[2023-11-16] MEDS: IRON POLYSACCHARIDES 150 MG CAPSULE PO SCH (10:26)
[2023-11-16] MEDS: DOCUSATE SODIUM 100 MG CAPSULE (FP) PO SCH (21:34)
[2023-11-17] MEDS: LEVOTHYROXINE NA 88 MCG TABLET (FP) PO SCH (06:20)
[2023-11-17 08:19] LABS: POTASSIUM 3.8 mmol/L (3.5-5.1)
[2023-11-17 08:24] LABS: BASO % 0.4 % (0-2.0); EOS % 0.7 % (0-4.5); HEMATOCRIT 26.8 % (32.4-45.2); HEMOGLOBIN 8.5 GM/dL (10.7-15.3); LYMPH % 37.4 % (8-40); MCH 28.9 pg (25.7-33.7); MCHC 31.9 g/dl (32.0-36.0); MEAN CELL VOLUME 90.7 fl (80-96); MEAN PLT VOLUME 7.8 fl (7.5-11.1); NEUT % 47.5 % (42.8-82.8); PLATELET COUNT 178 10^3/uL (134-434); RBC 2.95 M/mm3 (3.60-5.2); RDW 17.7 % (11.6-15.6); WHITE BLOOD COUNT 4.2 K/mm3 (4.0-10.0)
[2023-11-17 08:25] LABS: CALCIUM 8.9 mg/dL (8.5-10.1)
[2023-11-17 08:26] LABS: BLOOD UREA NITROGEN 35.9 mg/dL (7-18); MAGNESIUM 1.8 mg/dL (1.8-2.4)
[2023-11-17 08:29] LABS: CREATININE 1.1 mg/dL (0.55-1.3)
[2023-11-17 08:30] LABS: BILIRUBIN,TOTAL 0.6 mg/dL (0.2-1)
[2023-11-17 08:31] LABS: TOT PROT 5.8 g/dl (6.4-8.2)
[2023-11-17] MEDS: MINERAL OIL ENEMA 133 ML ENEMA RC ONE (13:45)
[2023-11-17] MEDS ORDERED: MINERAL OIL ENEMA 133 ML ENEMA RC PRN (17:55)
[2023-11-18 07:38] LABS: BASO % 0.4 % (0-2.0); EOS % 1.1 % (0-4.5); HEMATOCRIT 24.9 % (32.4-45.2); LYMPH % 43.3 % (8-40); MEAN CELL VOLUME 90.5 fl (80-96); MEAN PLT VOLUME 7.8 fl (7.5-11.1); MONO % 12.9 % (3.8-10.2); NEUT % 42.3 % (42.8-82.8); PLATELET COUNT 166 10^3/uL (134-434); RBC 2.75 M/mm3 (3.60-5.2); RDW 17.9 % (11.6-15.6); WHITE BLOOD COUNT 2.6 K/mm3 (4.0-10.0)
[2023-11-18 07:54] LABS: CHLORIDE 98 mmol/L (98-107); POTASSIUM 3.9 mmol/L (3.5-5.1); SODIUM 140 mmol/L (136-145)
[2023-11-18 07:58] LABS: ALBUMIN 2.8 g/dl (3.4-5.0); ANION GAP 4 mmol/L (4-13); BLOOD UREA NITROGEN 36.6 mg/dL (7-18); CALCIUM 8.8 mg/dL (8.5-10.1); CO2 39 mmol/L (21-32); GLUCOSE,RANDOM 84 mg/dL (74-106); MAGNESIUM 2.1 mg/dL (1.8-2.4)
[2023-11-18 08:02] LABS: CREATININE 1.1 mg/dL (0.55-1.3); SGOT/AST < 3 U/L (15-37); SGPT/ALT 7 U/L (13-61)
[2023-11-18 08:03] LABS: BILIRUBIN,TOTAL 0.6 mg/dL (0.2-1); TOT PROT 5.5 g/dl (6.4-8.2)
[2023-11-18 08:04] LABS: ALK PHOS 39 U/L (45-117)
[2023-11-18] MEDS: MELATONIN 1 MG TABLET PO PRN (21:22)
[2023-11-19 06:27] LABS: HEMATOCRIT 24.7 % (32.4-45.2); MCH 29.2 pg (25.7-33.7); MCHC 32.2 g/dl (32.0-36.0); MEAN CELL VOLUME 90.7 fl (80-96); MEAN PLT VOLUME 7.7 fl (7.5-11.1); PLATELET COUNT 152 10^3/uL (134-434); RBC 2.73 M/mm3 (3.60-5.2); WHITE BLOOD COUNT 2.4 K/mm3 (4.0-10.0)
[2023-11-19 06:46] LABS: POTASSIUM 3.9 mmol/L (3.5-5.1)
[2023-11-19 06:49] LABS: ALBUMIN 2.9 g/dl (3.4-5.0); BLOOD UREA NITROGEN 33.4 mg/dL (7-18); CALCIUM 9.1 mg/dL (8.5-10.1); MAGNESIUM 1.9 mg/dL (1.8-2.4)
[2023-11-19 06:52] LABS: CREATININE 0.9 mg/dL (0.55-1.3); PHOSPHOROUS 2.5 mg/dL (2.5-4.9)
[2023-11-19 06:54] LABS: BILIRUBIN,TOTAL 0.5 mg/dL (0.2-1); TOT PROT 5.4 g/dl (6.4-8.2)
[2023-11-20 09:03] VITALS: RESP 18
[2023-11-20] MEDS: FUROSEMIDE 40 MG TABLET (FP) PO SCH (09:48)
[2023-11-20 11:13] LABS: BASO % 0.5 % (0-2.0); EOS % 0.5 % (0-4.5); HEMATOCRIT 25.9 % (32.4-45.2); HEMOGLOBIN 8.3 GM/dL (10.7-15.3); MCH 29.2 pg (25.7-33.7); MCHC 32.3 g/dl (32.0-36.0); MEAN CELL VOLUME 90.6 fl (80-96); MEAN PLT VOLUME 7.8 fl (7.5-11.1); MONO % 14.8 % (3.8-10.2); NEUT % 48.2 % (42.8-82.8); PLATELET COUNT 151 10^3/uL (134-434); RBC 2.85 M/mm3 (3.60-5.2); WHITE BLOOD COUNT 2.6 K/mm3 (4.0-10.0)
[2023-11-20 11:43] LABS: POTASSIUM 3.6 mmol/L (3.5-5.1)
[2023-11-20 11:45] LABS: CALCIUM 9.4 mg/dL (8.5-10.1)
[2023-11-20 11:46] LABS: ALBUMIN 3.1 g/dl (3.4-5.0); BLOOD UREA NITROGEN 26.3 mg/dL (7-18); MAGNESIUM 1.8 mg/dL (1.8-2.4)
[2023-11-20 11:49] LABS: CREATININE 0.9 mg/dL (0.55-1.3); PHOSPHOROUS 2.1 mg/dL (2.5-4.9)
[2023-11-20 11:50] LABS: BILIRUBIN,TOTAL 0.5 mg/dL (0.2-1); TOT PROT 5.9 g/dl (6.4-8.2)
[2023-11-20 14:35] VITALS: BP 103/60; PULSE 74; TEMP 98.4
[2023-11-20 21:40] VITALS: BMI 27.9
== END 2023-11-20 15:24 | DRG 291 ==
LOC: JER 18:45 → JERBED 19:48 → J4W 11-13 11:09
PROVIDERS: ADMIT Internal Medicine; ATTEND Internal Medicine
DX: I13.0 Hypertensive heart and chronic kidney disease with heart failure and stage 1 through stage 4 chronic kidney disease, or unspecified chronic kidney disease (principal); I50.33 Acute on chronic diastolic (congestive) heart failure; J96.01 Acute respiratory failure with hypoxia; I48.21 Permanent atrial fibrillation; I25.119 Atherosclerotic heart disease of native coronary artery with unspecified angina pectoris; E11.22 Type 2 diabetes mellitus with diabetic chronic kidney disease; N18.9 Chronic kidney disease, unspecified; E78.5 Hyperlipidemia, unspecified; D69.6 Thrombocytopenia, unspecified; I42.0 Dilated cardiomyopathy; I34.0 Nonrheumatic mitral (valve) insufficiency; K21.9 Gastro-esophageal reflux disease without esophagitis; K57.90 Diverticulosis of intestine, part unspecified, without perforation or abscess without bleeding; K59.00 Constipation, unspecified; D50.9 Iron deficiency anemia, unspecified; E03.9 Hypothyroidism, unspecified; I95.9 Hypotension, unspecified
CPT/HCPCS: 0241U-QW; 36415; 71045-TC-FY; 71275-TC; 80053; 82272; 82728; 83540; 83550; 83735; 83880; 84100; 84439; 84443; 84481; 84484; 85025; 85027; 93005; 93010; 93306-TC; 94761; 97116-GP; 97161-GP; 99285-25; J1756; Q9967

== ENCOUNTER 2024-05-03 11:49 | Inpatient (IN) | payer OTHER, BC ==
[2024-05-03 12:51] LABS: BASO % 0.4 % (0-2.0); EOS % 0.2 % (0-4.5); HEMATOCRIT 31.2 % (32.4-45.2); HEMOGLOBIN 10.4 GM/dL (10.7-15.3); MCH 31.7 pg (25.7-33.7); MCHC 33.3 g/dl (32.0-36.0); MEAN CELL VOLUME 95.2 fl (80-96); MONO % 11.6 % (3.8-10.2); NEUT % 58.8 % (42.8-82.8); PLATELET COUNT 121 10^3/uL (134-434); RBC 3.27 M/mm3 (3.60-5.2); RDW 14.6 % (11.6-15.6); WHITE BLOOD COUNT 3.5 K/mm3 (4.0-10.0)
[2024-05-03 12:56] LABS: INR 1.17 (0.83-1.09); PROTHROMBIN TIME (PATIENT) 13.4 SEC (9.7-13.0)
[2024-05-03 13:58] LABS: POTASSIUM 5.7 mmol/L (3.5-5.1)
[2024-05-03 14:00] LABS: ALBUMIN 3.4 g/dl (3.4-5.0); BLOOD UREA NITROGEN 27.4 mg/dL (7-18); CALCIUM 9.6 mg/dL (8.5-10.1)
[2024-05-03 14:04] LABS: CREATININE 1.1 mg/dL (0.55-1.3)
[2024-05-03 14:05] LABS: BILIRUBIN,TOTAL 0.6 mg/dL (0.2-1); TOT PROT 6.2 g/dl (6.4-8.2)
[2024-05-03 14:08] LABS: N-TERMINAL BNP 2173.1 pg/ml (5-450)
[2024-05-03 15:02] LABS: EPI CELLS 4 /uL (0-25.1); HYALINE CASTS 0 /uL (0-3.1); PH,URINE 5.5 (5.0-8.0); URINE APPEARANCE CLEAR; URINE BACTERIA 4 /uL (0-1359); URINE BILIRUBIN NEGATIVE (NEGATIVE); URINE COLOR YELLOW; URINE GLUCOSE (UA) NEGATIVE (NEGATIVE); URINE KETONE NEGATIVE (NEGATIVE); URINE LEUK ESTERASE NEGATIVE (NEGATIVE); URINE NITRITE NEGATIVE (NEGATIVE); URINE PROTEIN NEGATIVE (NEGATIVE); URINE RBC 9 /uL (0-23.9); URINE UROBILINOGEN 0.2 mg/dL (0.2-1.0); URINE WBC 3 /uL (0-25.8)
[2024-05-03 15:24] LABS: POTASSIUM 4.6 mmol/L (3.5-5.1)
[2024-05-03 15:25] LABS: CALCIUM 9.5 mg/dL (8.5-10.1)
[2024-05-03 15:26] LABS: BLOOD UREA NITROGEN 26.8 mg/dL (7-18)
[2024-05-03] MEDS ORDERED: FUROSEMIDE 40 MG/4 ML INJECTABLE VIAL ONE (16:20)
[2024-05-03] MEDS: FUROSEMIDE 40 MG/4 ML INJECTABLE VIAL IVPUSH ONE ×4 (16:53→19:23)
[2024-05-03] MEDS ORDERED: SACUBITRIL/VALSARTAN 24 MG-26 MG TABLET ONE (21:52)
[2024-05-03] MEDS ORDERED: ATORVASTATIN CA 10 MG TABLET (FP) ONE (21:52)
[2024-05-03] MEDS ORDERED: APIXABAN 5 MG TABLET ONE (21:52)
[2024-05-03] MEDS: APIXABAN 2.5 MG TABLET PO SCH (22:06)
[2024-05-03] MEDS: CARVEDILOL 3.125 MG TABLET (FP) PO SCH (22:06)
[2024-05-03] MEDS: ATORVASTATIN CA 10 MG TABLET (FP) PO SCH (22:06)
[2024-05-03] MEDS: SACUBITRIL/VALSARTAN 24 MG-26 MG TABLET PO SCH (22:06)
[2024-05-04] MEDS ORDERED: LEVOTHYROXINE NA 88 MCG TABLET (FP) ONE (05:59)
[2024-05-04 06:36] LABS: BASO % 0.7 % (0-2.0); EOS % 0.4 % (0-4.5); HEMATOCRIT 29.7 % (32.4-45.2); MCH 32.4 pg (25.7-33.7); MCHC 33.8 g/dl (32.0-36.0); MEAN CELL VOLUME 95.8 fl (80-96); MEAN PLT VOLUME 8.1 fl (7.5-11.1); NEUT % 43.9 % (42.8-82.8); PLATELET COUNT 118 10^3/uL (134-434); RDW 14.3 % (11.6-15.6); WHITE BLOOD COUNT 3.1 K/mm3 (4.0-10.0)
[2024-05-04] MEDS: LEVOTHYROXINE NA 88 MCG TABLET (FP) PO SCH (06:41)
[2024-05-04 06:53] LABS: POTASSIUM 4.5 mmol/L (3.5-5.1)
[2024-05-04 06:57] LABS: CALCIUM 9.4 mg/dL (8.5-10.1)
[2024-05-04 06:58] LABS: ALBUMIN 3.2 g/dl (3.4-5.0); BLOOD UREA NITROGEN 28.5 mg/dL (7-18); MAGNESIUM 1.7 mg/dL (1.8-2.4)
[2024-05-04 07:01] LABS: CREATININE 0.9 mg/dL (0.55-1.3)
[2024-05-04 07:02] LABS: BILIRUBIN,TOTAL 0.6 mg/dL (0.2-1)
[2024-05-04 07:03] LABS: TOT PROT 5.5 g/dl (6.4-8.2)
[2024-05-04] MEDS ORDERED: MAGNESIUM OXIDE 400 MG TABLET (FP) ONE (07:25)
[2024-05-04] MEDS: MAGNESIUM OXIDE 400 MG TABLET (FP) PO ONE (07:32)
[2024-05-04] MEDS ORDERED: CARVEDILOL 3.125 MG TABLET (FP) ONE (10:46)
[2024-05-04] MEDS ORDERED: SPIRONOLACTONE 25 MG TABLET ONE (10:46)
[2024-05-04] MEDS ORDERED: FUROSEMIDE 40 MG/4 ML INJECTABLE VIAL ONE (10:46)
[2024-05-04] MEDS ORDERED: APIXABAN 2.5 MG TABLET ONE (10:46)
[2024-05-04] MEDS: SPIRONOLACTONE 25 MG TABLET PO SCH (10:53)
[2024-05-04] MEDS: FUROSEMIDE 40 MG/4 ML INJECTABLE VIAL IVPUSH SCH (12:45)
[2024-05-04 16:07] VITALS: BMI 34.1
[2024-05-05 06:56] LABS: BASO % 0.8 % (0-2.0); EOS % 0.4 % (0-4.5); HEMOGLOBIN 9.7 GM/dL (10.7-15.3); LYMPH % 41.5 % (8-40); MCH 32.2 pg (25.7-33.7); MCHC 33.5 g/dl (32.0-36.0); MEAN CELL VOLUME 96.1 fl (80-96); MEAN PLT VOLUME 8.7 fl (7.5-11.1); MONO % 12.1 % (3.8-10.2); NEUT % 45.2 % (42.8-82.8); PLATELET COUNT 116 10^3/uL (134-434); RBC 3.02 M/mm3 (3.60-5.2); RDW 14.2 % (11.6-15.6); WHITE BLOOD COUNT 3.4 K/mm3 (4.0-10.0)
[2024-05-05 07:10] LABS: POTASSIUM 4.4 mmol/L (3.5-5.1)
[2024-05-05 07:13] LABS: CALCIUM 9.4 mg/dL (8.5-10.1)
[2024-05-05 07:14] LABS: ALBUMIN 3.2 g/dl (3.4-5.0); MAGNESIUM 1.7 mg/dL (1.8-2.4)
[2024-05-05 07:17] LABS: CREATININE 0.8 mg/dL (0.55-1.3)
[2024-05-05 07:19] LABS: BILIRUBIN,TOTAL 0.7 mg/dL (0.2-1); TOT PROT 5.4 g/dl (6.4-8.2)
[2024-05-05] MEDS: PANTOPRAZOLE SODIUM 40 MG VIAL IVPUSH SCH (22:01)
[2024-05-06 07:52] LABS: BASO % 0.4 % (0-2.0); EOS % 0.4 % (0-4.5); HEMATOCRIT 30.2 % (32.4-45.2); HEMOGLOBIN 10.1 GM/dL (10.7-15.3); LYMPH % 42.5 % (8-40); MCH 32.2 pg (25.7-33.7); MCHC 33.5 g/dl (32.0-36.0); MEAN CELL VOLUME 96.2 fl (80-96); MEAN PLT VOLUME 8.2 fl (7.5-11.1); MONO % 11.2 % (3.8-10.2); NEUT % 45.5 % (42.8-82.8); PLATELET COUNT 111 10^3/uL (134-434); RBC 3.14 M/mm3 (3.60-5.2); RDW 13.9 % (11.6-15.6); WHITE BLOOD COUNT 3.6 K/mm3 (4.0-10.0)
[2024-05-06 08:03] LABS: POTASSIUM 4.5 mmol/L (3.5-5.1)
[2024-05-06 08:14] LABS: CALCIUM 9.5 mg/dL (8.5-10.1)
[2024-05-06 08:15] LABS: ALBUMIN 3.4 g/dl (3.4-5.0); BLOOD UREA NITROGEN 38.9 mg/dL (7-18); MAGNESIUM 1.9 mg/dL (1.8-2.4)
[2024-05-06 08:18] LABS: CREATININE 0.9 mg/dL (0.55-1.3)
[2024-05-06 08:19] LABS: BILIRUBIN,TOTAL 0.9 mg/dL (0.2-1); TOT PROT 5.7 g/dl (6.4-8.2)
[2024-05-07 07:52] LABS: BASO % 0.4 % (0-2.0); EOS % 0.5 % (0-4.5); HEMATOCRIT 28.8 % (32.4-45.2); HEMOGLOBIN 9.7 GM/dL (10.7-15.3); MCH 32.4 pg (25.7-33.7); MCHC 33.7 g/dl (32.0-36.0); MEAN CELL VOLUME 96.1 fl (80-96); MEAN PLT VOLUME 8.2 fl (7.5-11.1); MONO % 12.8 % (3.8-10.2); NEUT % 42.3 % (42.8-82.8); PLATELET COUNT 109 10^3/uL (134-434); WHITE BLOOD COUNT 2.8 K/mm3 (4.0-10.0)
[2024-05-07 08:12] LABS: POTASSIUM 4.3 mmol/L (3.5-5.1)
[2024-05-07 08:16] LABS: CALCIUM 9.5 mg/dL (8.5-10.1)
[2024-05-07 08:17] LABS: ALBUMIN 3.2 g/dl (3.4-5.0); BLOOD UREA NITROGEN 39.4 mg/dL (7-18)
[2024-05-07 08:20] LABS: CREATININE 0.9 mg/dL (0.55-1.3)
[2024-05-07 08:21] LABS: BILIRUBIN,TOTAL 0.7 mg/dL (0.2-1); TOT PROT 5.5 g/dl (6.4-8.2)
[2024-05-07] MEDS: FUROSEMIDE 40 MG/4 ML INJECTABLE VIAL IVPUSH SCH (09:12)
[2024-05-07 15:15] VITALS: RESP 18
[2024-05-08 06:43] VITALS: TEMP 98.5
[2024-05-08 09:36] VITALS: BP 129/73; PULSE 63
[2024-05-08] MEDS: FUROSEMIDE 40 MG TABLET (FP) PO SCH (09:42)
== END 2024-05-08 12:31 | DRG 291 ==
LOC: JER 11:49 → JERBED 15:27 → OBSVTOIN 05-04 13:17 → J4W 05-04 13:27
PROVIDERS: ADMIT Internal Medicine; ATTEND Registered Nurse
DX: I13.0 Hypertensive heart and chronic kidney disease with heart failure and stage 1 through stage 4 chronic kidney disease, or unspecified chronic kidney disease (principal); I50.23 Acute on chronic systolic (congestive) heart failure; I48.21 Permanent atrial fibrillation; N18.9 Chronic kidney disease, unspecified; K21.9 Gastro-esophageal reflux disease without esophagitis; I25.10 Atherosclerotic heart disease of native coronary artery without angina pectoris; E78.5 Hyperlipidemia, unspecified
CPT/HCPCS: 0241U-QW; 36415; 71045-TC-FY; 71250-TC; 80048; 80053; 81003; 82272; 83735; 83880; 84439; 84443; 84484; 85025; 85610; 85730; 87086; 93005; 93010; 93306-TC; 97116-GP; 97161-GP; 99285-25; G0378

== ENCOUNTER 2024-05-18 14:44 | Inpatient (IN) | payer OTHER, BC ==
[2024-05-18 15:12] VITALS: BMI 33.4
[2024-05-18 16:30] LABS: BASO % 0.5 % (0-2.0); EOS % 0.1 % (0-4.5); HEMATOCRIT 29.6 % (32.4-45.2); HEMOGLOBIN 9.6 GM/dL (10.7-15.3); LYMPH % 47.5 % (8-40); MCH 31.8 pg (25.7-33.7); MCHC 32.5 g/dl (32.0-36.0); MEAN CELL VOLUME 97.8 fl (80-96); MEAN PLT VOLUME 8.6 fl (7.5-11.1); MONO % 13.9 % (3.8-10.2); PLATELET COUNT 126 10^3/uL (134-434); RBC 3.02 M/mm3 (3.60-5.2); RDW 14.3 % (11.6-15.6); WHITE BLOOD COUNT 2.6 K/mm3 (4.0-10.0)
[2024-05-18 17:11] LABS: ALBUMIN 3.5 g/dl (3.4-5.0); CALCIUM 9.5 mg/dL (8.5-10.1); POTASSIUM 5.1 mmol/L (3.5-5.1)
[2024-05-18 17:17] LABS: BILIRUBIN,TOTAL 0.4 mg/dL (0.2-1); CREATININE 1.1 mg/dL (0.55-1.3); TOT PROT 6.1 g/dl (6.4-8.2)
[2024-05-18 17:24] LABS: N-TERMINAL BNP 3396.2 pg/ml (5-450)
[2024-05-18] MEDS: methylPREDNISolone NA SUCC 40 MG/1 ML VIAL IVPUSH SCH (22:11)
[2024-05-18] MEDS: AZITHROMYCIN IVPB 500 MG/250 ML BAG IVPB SCH (22:12)
[2024-05-18] MEDS: BUDESONIDE/FORMETEROL FUMARATE 80/4.5 mcg INHALER IH SCH (23:27)
[2024-05-19 02:45] LABS: EPI CELLS >36 /uL (0-25.1); HYALINE CASTS 5 /uL (0-3.1); PH,URINE 5.5 (5.0-8.0); URINE APPEARANCE CLEAR; URINE BACTERIA 48 /uL (0-1359); URINE BILIRUBIN NEGATIVE (NEGATIVE); URINE COLOR YELLOW; URINE GLUCOSE (UA) NEGATIVE (NEGATIVE); URINE KETONE NEGATIVE (NEGATIVE); URINE LEUK ESTERASE 2+ (NEGATIVE); URINE NITRITE NEGATIVE (NEGATIVE); URINE PROTEIN 1+ (NEGATIVE); URINE RBC 19 /uL (0-23.9); URINE UROBILINOGEN 0.2 mg/dL (0.2-1.0); URINE WBC 161 /uL (0-25.8)
[2024-05-19] MEDS: CEFTRIAXONE 1 GM in DEXTROSE 5%-WATER - 50 ML IVPB ONE (05:11)
[2024-05-19] MEDS ORDERED: FUROSEMIDE 40 MG/4 ML INJECTABLE VIAL IVPUSH SCH (06:00)
[2024-05-19] MEDS: LEVOTHYROXINE NA 88 MCG TABLET (FP) PO SCH (06:19)
[2024-05-19 09:42] LABS: EPI CELLS 15 /uL (0-25.1); HYALINE CASTS 2 /uL (0-3.1); PH,URINE 5.5 (5.0-8.0); URINE APPEARANCE CLEAR; URINE BACTERIA 17 /uL (0-1359); URINE BILIRUBIN NEGATIVE (NEGATIVE); URINE COLOR YELLOW; URINE GLUCOSE (UA) NEGATIVE (NEGATIVE); URINE KETONE NEGATIVE (NEGATIVE); URINE LEUK ESTERASE TRACE (NEGATIVE); URINE NITRITE NEGATIVE (NEGATIVE); URINE PROTEIN 1+ (NEGATIVE); URINE RBC 20 /uL (0-23.9); URINE UROBILINOGEN 0.2 mg/dL (0.2-1.0); URINE WBC 13 /uL (0-25.8)
[2024-05-19] MEDS: CYANOCOBALAMIN 1,000 MCG TABLET (FP) PO SCH (09:49)
[2024-05-19] MEDS: APIXABAN 2.5 MG TABLET PO SCH (09:49)
[2024-05-19] MEDS: CHOLECALCIFEROL (VIT D3) 1,000 UNIT (25 MCG) TABLET PO SCH (09:49)
[2024-05-19] MEDS: FUROSEMIDE 40 MG/4 ML INJECTABLE VIAL IVPUSH ONE ×2 (09:49→15:33)
[2024-05-19] MEDS: POLYETHYLENE GLYCOL (HEALTHYLAX) 3350 17 GM PACKET PO SCH (09:49)
[2024-05-19] MEDS: PANTOPRAZOLE 20 MG TABLET PO SCH (09:49)
[2024-05-19] MEDS ORDERED: SPIRONOLACTONE 25 MG TABLET PO SCH (10:00)
[2024-05-19] MEDS ORDERED: IRON POLYSACCHARIDES 150 MG CAPSULE PO SCH (10:00)
[2024-05-19 10:06] LABS: HEMATOCRIT 29.7 % (32.4-45.2); HEMOGLOBIN 9.8 GM/dL (10.7-15.3); MCH 31.5 pg (25.7-33.7); MEAN CELL VOLUME 95.2 fl (80-96); MEAN PLT VOLUME 8.6 fl (7.5-11.1); MONO % 1.7 % (3.8-10.2); NEUT % 65.3 % (42.8-82.8); PLATELET COUNT 129 10^3/uL (134-434); RBC 3.11 M/mm3 (3.60-5.2); RDW 13.8 % (11.6-15.6); WHITE BLOOD COUNT 2.9 K/mm3 (4.0-10.0)
[2024-05-19 10:27] LABS: POTASSIUM 4.9 mmol/L (3.5-5.1)
[2024-05-19 10:40] LABS: ALBUMIN 3.6 g/dl (3.4-5.0); BLOOD UREA NITROGEN 42.8 mg/dL (7-18); CALCIUM 9.8 mg/dL (8.5-10.1)
[2024-05-19 10:44] LABS: BILIRUBIN,TOTAL 0.4 mg/dL (0.2-1); PHOSPHOROUS 3.8 mg/dL (2.5-4.9)
[2024-05-19 10:45] LABS: MAGNESIUM 2.2 mg/dL (1.8-2.4); TOT PROT 6.1 g/dl (6.4-8.2)
[2024-05-19] MEDS: ATORVASTATIN CA 10 MG TABLET (FP) PO SCH (21:02)
[2024-05-19] MEDS: MELATONIN 1 MG TABLET PO PRN (21:02)
[2024-05-20 07:49] LABS: BASO % 0.3 % (0-2.0); EOS % 0.1 % (0-4.5); HEMATOCRIT 28.7 % (32.4-45.2); HEMOGLOBIN 9.6 GM/dL (10.7-15.3); LYMPH % 24.4 % (8-40); MCH 32.1 pg (25.7-33.7); MCHC 33.3 g/dl (32.0-36.0); MEAN CELL VOLUME 96.3 fl (80-96); MEAN PLT VOLUME 8.6 fl (7.5-11.1); MONO % 12.6 % (3.8-10.2); NEUT % 62.6 % (42.8-82.8); PLATELET COUNT 127 10^3/uL (134-434); RBC 2.98 M/mm3 (3.60-5.2); RDW 13.8 % (11.6-15.6); WHITE BLOOD COUNT 4.7 K/mm3 (4.0-10.0)
[2024-05-20 08:13] LABS: POTASSIUM 4.9 mmol/L (3.5-5.1)
[2024-05-20 08:20] LABS: ALBUMIN 3.5 g/dl (3.4-5.0); BLOOD UREA NITROGEN 42.5 mg/dL (7-18)
[2024-05-20 08:21] LABS: BILIRUBIN,TOTAL 0.5 mg/dL (0.2-1); TOT PROT 5.9 g/dl (6.4-8.2)
[2024-05-20 08:23] LABS: PHOSPHOROUS 3.3 mg/dL (2.5-4.9)
[2024-05-20 08:25] LABS: CALCIUM 9.9 mg/dL (8.5-10.1); MAGNESIUM 2.1 mg/dL (1.8-2.4)
[2024-05-20] MEDS: FUROSEMIDE 40 MG/4 ML INJECTABLE VIAL IVPUSH SCH (09:09)
[2024-05-20] MEDS: POLYETHYLENE GLYCOL (HEALTHYLAX) 3350 17 GM PACKET PO SCH (21:17)
[2024-05-20] MEDS: SENNOSIDES 8.8 MG/5 ML SYRUP PO SCH (21:17)
[2024-05-21 08:32] LABS: HEMATOCRIT 30.1 % (32.4-45.2); MCH 32.1 pg (25.7-33.7); MCHC 33.2 g/dl (32.0-36.0); MEAN CELL VOLUME 96.6 fl (80-96); MEAN PLT VOLUME 8.4 fl (7.5-11.1); PLATELET COUNT 126 10^3/uL (134-434); RBC 3.12 M/mm3 (3.60-5.2); RDW 13.7 % (11.6-15.6); WHITE BLOOD COUNT 5.1 K/mm3 (4.0-10.0)
[2024-05-21 08:54] LABS: POTASSIUM 4.6 mmol/L (3.5-5.1)
[2024-05-21 08:57] LABS: BLOOD UREA NITROGEN 39.4 mg/dL (7-18); CALCIUM 10.1 mg/dL (8.5-10.1); MAGNESIUM 2.1 mg/dL (1.8-2.4)
[2024-05-21 09:00] LABS: CREATININE 0.8 mg/dL (0.55-1.3)
[2024-05-21 09:01] LABS: PHOSPHOROUS 3.2 mg/dL (2.5-4.9)
[2024-05-21] MEDS ORDERED: ACETAMINOPHEN 1000 MG/100 ML BAG IVPB PRN (11:16)
[2024-05-21] MEDS: BISACODYL 10 MG SUPP.RECT PR ONE (15:51)
[2024-05-21] MEDS: FUROSEMIDE 40 MG/4 ML INJECTABLE VIAL IVPUSH SCH (15:55)
[2024-05-21 18:03] LABS: VENOUS BASE EXCESS 12.7 mmol/L (-2-2); VENOUS O2 SATURATION 93.9 % (70-80); VENOUS PH 7.357 (7.310-7.410)
[2024-05-21 18:12] LABS: VENOUS PCO2 74.7 mmHg (38-52)
[2024-05-22] MEDS: FUROSEMIDE 40 MG/4 ML INJECTABLE VIAL IVPUSH SCH (06:20)
[2024-05-22 07:09] LABS: HEMATOCRIT 32.1 % (32.4-45.2); HEMOGLOBIN 10.6 GM/dL (10.7-15.3); MCH 32.1 pg (25.7-33.7); MCHC 32.9 g/dl (32.0-36.0); MEAN CELL VOLUME 97.4 fl (80-96); PLATELET COUNT 117 10^3/uL (134-434); RDW 13.6 % (11.6-15.6); WHITE BLOOD COUNT 3.5 K/mm3 (4.0-10.0)
[2024-05-22 07:24] LABS: POTASSIUM 4.2 mmol/L (3.5-5.1)
[2024-05-22 07:26] LABS: ALBUMIN 3.4 g/dl (3.4-5.0); BLOOD UREA NITROGEN 42.4 mg/dL (7-18)
[2024-05-22 07:29] LABS: CREATININE 0.9 mg/dL (0.55-1.3)
[2024-05-22 07:30] LABS: PHOSPHOROUS 3.2 mg/dL (2.5-4.9)
[2024-05-22 07:31] LABS: BILIRUBIN,TOTAL 0.7 mg/dL (0.2-1); TOT PROT 5.9 g/dl (6.4-8.2)
[2024-05-22 10:10] LABS: ARTERIAL BLD GAS O2 SATURATION 97.9 % (95-98); ARTERIAL BLOOD GAS BASE EXCESS 10.9 mmol/L (-2-2); ARTERIAL BLOOD GAS PO2 118.8 mmHg (80-100); ARTERIAL BLOOD GAS pH 7.342 (7.350-7.450)
[2024-05-22 10:13] LABS: ALLENS TEST POSITIVE
[2024-05-22] MEDS: PIPERACILLIN/TAZOB 3.375 GM 3.375 GM in DEXTROSE 5%-WATER - 50 ML IVPB SCH (19:48)
[2024-05-22] MEDS: methylPREDNISolone NA SUCC 40 MG/1 ML VIAL IVPB ONE (19:48)
[2024-05-22] MEDS: LACTATED RINGERS SOLUTION 1,000 ML/1,000 ML INFUS.BAG IV SCH (19:49)
[2024-05-22] MEDS ORDERED: LEVALBUTEROL HCL 0.63 MG/3 ML VIAL.NEB. IH SCH (20:00)
[2024-05-22] MEDS: ACETYLCYSTEINE 20% 200MG/ML 4 ML VIAL *FOR ORAL / INH USE ONLY NEB SCH (20:01)
[2024-05-22] MEDS: LEVALBUTEROL HCL 0.63 MG/3 ML VIAL.NEB. IH SCH (20:01)
[2024-05-23] MEDS: hydrOXYzine PAMOATE 25 MG CAPSULE (FP) PO ONE (00:31)
[2024-05-23 05:48] LABS: ARTERIAL BLOOD GAS BASE EXCESS 8.1 mmol/L (-2-2); ARTERIAL BLOOD GAS PO2 66.9 mmHg (80-100); ARTERIAL BLOOD GAS pH 7.359 (7.350-7.450)
[2024-05-23 05:49] LABS: ALLENS TEST POSITIVE
[2024-05-23] MEDS: ACETYLCYSTEINE 20% 200MG/ML 4 ML VIAL *FOR ORAL / INH USE ONLY NEB SCH (07:13)
[2024-05-23 08:12] LABS: HEMATOCRIT 30.5 % (32.4-45.2); HEMOGLOBIN 10.3 GM/dL (10.7-15.3); MCH 32.2 pg (25.7-33.7); MCHC 33.6 g/dl (32.0-36.0); MEAN CELL VOLUME 95.7 fl (80-96); MEAN PLT VOLUME 8.7 fl (7.5-11.1); PLATELET COUNT 125 10^3/uL (134-434); RBC 3.19 M/mm3 (3.60-5.2); RDW 13.6 % (11.6-15.6); WHITE BLOOD COUNT 2.2 K/mm3 (4.0-10.0)
[2024-05-23 08:26] LABS: POTASSIUM 4.6 mmol/L (3.5-5.1)
[2024-05-23 08:37] LABS: BLOOD UREA NITROGEN 46.2 mg/dL (7-18); CALCIUM 10.3 mg/dL (8.5-10.1)
[2024-05-23 08:38] LABS: MAGNESIUM 1.9 mg/dL (1.8-2.4)
[2024-05-23 08:41] LABS: CREATININE 0.9 mg/dL (0.55-1.3)
[2024-05-23] MEDS: methylPREDNISolone NA SUCC 40 MG/1 ML VIAL IVPUSH ONE (13:33)
[2024-05-23] MEDS: SODIUM CHLORIDE FOR INHALATION 3 ML VIAL.NEB IH SCH (15:30)
[2024-05-23] MEDS: LEVALBUTEROL HCL 0.63 MG/3 ML VIAL.NEB. IH SCH (15:30)
[2024-05-23] MEDS ORDERED: ALBUTEROL SO4 0.083% IH SOL 2.5 MG/3 ML VIAL.NEB. NEB SCH (16:00)
[2024-05-23 23:33] VITALS: RESP 18
[2024-05-24 06:46] LABS: HEMATOCRIT 30.6 % (32.4-45.2); HEMOGLOBIN 10.3 GM/dL (10.7-15.3); MCH 32.6 pg (25.7-33.7); MCHC 33.6 g/dl (32.0-36.0); MEAN CELL VOLUME 97.2 fl (80-96); MEAN PLT VOLUME 8.3 fl (7.5-11.1); PLATELET COUNT 138 10^3/uL (134-434); RBC 3.15 M/mm3 (3.60-5.2); RDW 13.7 % (11.6-15.6); WHITE BLOOD COUNT 4.3 K/mm3 (4.0-10.0)
[2024-05-24 06:57] LABS: CHLORIDE 93 mmol/L (98-107); POTASSIUM 4.2 mmol/L (3.5-5.1); SODIUM 140 mmol/L (136-145)
[2024-05-24 06:58] LABS: CALCIUM 10.2 mg/dL (8.5-10.1)
[2024-05-24 07:00] LABS: BLOOD UREA NITROGEN 46.5 mg/dL (7-18); GLUCOSE,RANDOM 109 mg/dL (74-106); MAGNESIUM 2.1 mg/dL (1.8-2.4)
[2024-05-24 07:03] LABS: PHOSPHOROUS 2.7 mg/dL (2.5-4.9)
[2024-05-24 07:12] LABS: ANION GAP 3 mmol/L (4-13); CO2 > 45 mmol/L (21-32)
[2024-05-24] MEDS ORDERED: MORPHINE 100 MG/100 ML MG ONE (16:20)
[2024-05-24] MEDS: MORPHINE SULFATE/0.9% NACL/PF 100 MG/100 ML BAG IVPB SCH (16:33)
[2024-05-24] MEDS: SCOPOLAMINE HYDROBROMIDE 1 PATCH PATCH.TD72 TD SCH (18:07)
[2024-05-24] MEDS ORDERED: ACETAMINOPHEN 1000 MG/100 ML BAG IVPB PRN (19:13)
[2024-05-25 02:10] VITALS: TEMP 97.7
[2024-05-25 07:03] VITALS: BP 129/62; PULSE 78
[2024-05-25] MEDS ORDERED: MELATONIN 1 MG TABLET PO PRN (07:38)
[2024-05-25] MEDS ORDERED: MORPHINE SULFATE/0.9% NACL/PF 100 MG/100 ML BAG IVPB SCH (07:38)
[2024-05-25] MEDS: PIPERACILLIN/TAZOB 3.375 GM 3.375 GM in DEXTROSE 5%-WATER - 50 ML IVPB SCH (08:29)
[2024-05-25 08:33] LABS: HEMATOCRIT 34.3 % (32.4-45.2); HEMOGLOBIN 11.3 GM/dL (10.7-15.3); MCH 32.2 pg (25.7-33.7); MEAN CELL VOLUME 97.7 fl (80-96); MEAN PLT VOLUME 8.2 fl (7.5-11.1); PLATELET COUNT 156 10^3/uL (134-434); RBC 3.51 M/mm3 (3.60-5.2); WHITE BLOOD COUNT 6.4 K/mm3 (4.0-10.0)
[2024-05-25] MEDS: SODIUM CHLORIDE FOR INHALATION 3 ML VIAL.NEB IH SCH (08:40)
[2024-05-25] MEDS: FUROSEMIDE 40 MG/4 ML INJECTABLE VIAL IVPUSH ONE (08:45)
[2024-05-25 08:52] LABS: CHLORIDE 94 mmol/L (98-107); POTASSIUM 4.3 mmol/L (3.5-5.1); SODIUM 142 mmol/L (136-145)
[2024-05-25 08:54] LABS: CALCIUM 10.2 mg/dL (8.5-10.1)
[2024-05-25 08:55] LABS: ALBUMIN 3.5 g/dl (3.4-5.0); ANION GAP 4 mmol/L (4-13); BLOOD UREA NITROGEN 52.8 mg/dL (7-18); CO2 > 45 mmol/L (21-32); GLUCOSE,RANDOM 121 mg/dL (74-106)
[2024-05-25 08:58] LABS: CREATININE 1.1 mg/dL (0.55-1.3); SGOT/AST 7 U/L (15-37); SGPT/ALT 26 U/L (13-61)
[2024-05-25 09:00] LABS: BILIRUBIN,TOTAL 0.8 mg/dL (0.2-1); TOT PROT 6.3 g/dl (6.4-8.2)
[2024-05-25 09:01] LABS: ALK PHOS 29 U/L (45-117)
[2024-05-25] MEDS: MORPHINE 100 MG/100 ML MG IVPB SCH (09:20)
[2024-05-27] MEDS ORDERED: SCOPOLAMINE HYDROBROMIDE 1 PATCH PATCH.TD72 TD SCH (15:30)
== END 2024-05-25 17:12 | disposition expired | DRG 291 ==
LOC: JER 14:44 → JERBED 18:21 → J5S 21:21 → J4S 05-19 21:25 → J8W 05-24 20:41
PROVIDERS: ADMIT Internal Medicine; ATTEND Internal Medicine
DX: I13.0 Hypertensive heart and chronic kidney disease with heart failure and stage 1 through stage 4 chronic kidney disease, or unspecified chronic kidney disease (principal); I50.23 Acute on chronic systolic (congestive) heart failure; J96.21 Acute and chronic respiratory failure with hypoxia; D61.818 Other pancytopenia; I31.39 Other pericardial effusion (noninflammatory); J98.11 Atelectasis; I48.91 Unspecified atrial fibrillation; J98.09 Other diseases of bronchus, not elsewhere classified; I46.9 Cardiac arrest, cause unspecified; N18.9 Chronic kidney disease, unspecified; E78.5 Hyperlipidemia, unspecified; I25.10 Atherosclerotic heart disease of native coronary artery without angina pectoris; K21.9 Gastro-esophageal reflux disease without esophagitis; E03.9 Hypothyroidism, unspecified
CPT/HCPCS: 0241U-QW; 36415; 36600; 71045-TC-FY; 74018-TC-FY; 74230-TC-FY; 80048; 80053; 81003; 82550; 82607; 82746; 82803; 82962; 83735; 83880; 84100; 84484; 85025; 85027; 87086; 92611-GN; 93005; 93010; 93306-TC; 94010; 94150; 94640; 94660; 97116-GP; 97161-GP; 99285-25